=== PATIENT | female | born 1935 | race Caucasian/White ===

== ENCOUNTER 2017-05-17 21:21 | Inpatient (IN) | payer MEDICARE, BC ==
[2017-05-17 22:40] LABS: Hematocrit 39 % (35-47); Hemoglobin 12.8 g/dl (12.0-16.0); Mean Corpuscular HGB Conc 33 g/dl (31-36); Mean Corpuscular Hemoglobin 30 pg (27-31); Mean Corpuscular Volume 90 fL (80-97); Mean Platelet Volume 8 um3 (7.4-10.4); Red Cell Distribution Width 13 % (10.5-15); White Blood Count 13.8 10^3/ul (3.5-10.8)
[2017-05-17 22:55] LABS: Albumin 4.2 g/dL (3.2-5.2); BUN/Creatinine Ratio 27.9 (8-20); Calcium 10.7 mg/dL (8.6-10.3); EGFR African American 106.5 (>60); EGFR Non-African American 82.8 (>60); Globulin 3.4 g/dL (2-4); Potassium 3.9 mmol/L (3.5-5.0); Total Bilirubin 0.6 mg/dL (0.2-1.0); Total Protein 7.6 g/dL (6.4-8.9)
[2017-05-17 22:57] LABS: Troponin I 0.02 ng/mL (<0.04)
[2017-05-17 23:58] LABS: Urine Bacteria Absent (Absent); Urine Bilirubin Negative (Negative); Urine Glucose Negative (Negative); Urine Nitrite Negative (Negative)
--- NOTE | 2017-05-18 00:33 | ED ---
Lower Extremity - HPI Summary HPI Summary: 82F w/ no PMH presents with right hip pain today. Her leg got caught on the rug and she fell onto her right hip. She was not able to get up. Her son found her 5 hours later. She states only has pain when tries to move hip. no previous injury to the area. no numbness or tingling. the fall was a mechanical fall. She is not on blood thinners. last meal was at 12pm. She has minimal pain until tries to move. She states she was treating pain just by positioning. - History of Current Complaint Chief Complaint: EDExtremityLower Stated Complaint: FALL/RT HIP INJURY Time Seen by Provider: 05/17/17 22:05 Pain Intensity: 2 - Allergies/Home Medications Allergies/Adverse Reactions: Allergies Allergy/AdvReac Type Severity Reaction Status Date / Time Lisinopril Allergy Coughing Verified 05/30/12 09:16 PMH/Surg Hx/FS Hx/Imm Hx Endocrine/Hematology History: Denies: Hx Anticoagulant Therapy, Hx Diabetes Cardiovascular History: Denies: Hx Hypertension Sensory History: Reports: Hx Cataracts, Hx Contacts or Glasses - GLASSES Denies: Hx Hearing Aid Opthamlomology History: Reports: Hx Cataracts, Hx Contacts or Glasses - GLASSES - Cancer History Hx Chemotherapy: Yes - Surgical History Surgery Procedure, Year, and Place: RIGHT MASTECTOMY. APPENDECTOMY- A TEEN Hx Anesthesia Reactions: No Infectious Disease History: No Infectious Disease History: Denies: Traveled Outside the [place] in Last 30 Days - Family History Known Family History: Positive: Hypertension - Social History Alcohol Use: None Substance Use Type: Reports: None Smoking Status (MU): Former Smoker Review of Systems Negative: Fever Negative: Chest Pain Negative: Shortness Of Breath Positive: Myalgia - right hip pain All Other Systems Reviewed And Are Negative: Yes Physical Exam Triage Information Reviewed: Yes Vital Signs On Initial Exam: Initial Vitals BP 149/122 05/17/17 21:29 Vital Signs Reviewed: Yes Appearance: Positive: Well-Appearing Skin: Positive: Warm, Dry Head/Face: Positive: Normal Head/Face Inspection Eyes: Positive: Normal, EOMI, JOSE C, Conjunctiva Clear ENT: Positive: Normal ENT inspection, Pharynx normal, TMs normal Respiratory/Lung Sounds: Positive: Clear to Auscultation, Breath Sounds Present Cardiovascular: Positive: Normal, RRR Abdomen Description: Positive: Nontender, Soft Bowel Sounds: Positive: Present Musculoskeletal: Positive: Strength/ROM Intact - toes and ankle, Limited @ - right hip, Other - nontender hip, unable to move right hip without pain, good pulses, capillary refill<2 secs - Stacey Coma Scale Coma Scale Total: 15 Diagnostics - Vital Signs Vital Signs Temp Pulse Resp BP Pulse Ox 05/17/17 23:30 105 162/95 94 05/17/17 23:17 95 16 151/81 83 05/17/17 23:16 96 85 05/17/17 22:00 158/88 05/17/17 21:37 101 83 05/17/17 21:32 103 160/78 84 05/17/17 21:31 100 81 05/17/17 21:30 97.2 F 101 16 160/78 94 05/17/17 21:29 149/122 - Laboratory Lab Results: Lab Results 05/17/17 05/17/17 05/17/17 Range/Units 22:30 22:30 22:30 WBC 13.8 H (3.5-10.8) 10^3/ul RBC 4.30 (4.0-5.4) 10^6/ul Hgb 12.8 (12.0-16.0) g/dl Hct 39 (35-47) % MCV 90 (80-97) fL MCH 30 (27-31) pg MCHC 33 (31-36) g/dl RDW 13 (10.5-15) % Plt Count 261 (150-450) 10^3/ul MPV 8 (7.4-10.4) um3 Neut % (Auto) 90.0 H (38-83) % Lymph % (Auto) 3.7 L (25-47) % Prairie % (Auto) 6.1 (1-9) % Eos % (Auto) 0 (0-6) % Baso % (Auto) 0.2 (0-2) % Absolute Neuts (auto) 12.4 H (1.5-7.7) 10^3/ul Absolute Lymphs (auto) 0.5 L (1.0-4.8) 10^3/ul Absolute Monos (auto) 0.8 (0-0.8) 10^3/ul Absolute Eos (auto) 0 (0-0.6) 10^3/ul Absolute Basos (auto) 0 (0-0.2) 10^3/ul Absolute Nucleated RBC 0 10^3/ul Nucleated RBC % 0 INR (Anticoag Therapy) 0.98 (0.89-1.11) APTT 25.8 L (26.0-36.3) seconds Sodium 136 (133-145) mmol/L Potassium 3.9 (3.5-5.0) mmol/L Chloride 103 (101-111) mmol/L Carbon Dioxide 25 (22-32) mmol/L Anion Gap 8 (2-11) mmol/L BUN 19 (6-24) mg/dL Creatinine 0.68 (0.51-0.95) mg/dL Est GFR ( Amer) 106.5 (>60) Est GFR (Non-Af Amer) 82.8 (>60) BUN/Creatinine Ratio 27.9 H (8-20) Glucose 137 H (70-100) mg/dL Lactic Acid (0.5-2.0) mmol/L Calcium 10.7 H (8.6-10.3) mg/dL Total Bilirubin 0.60 (0.2-1.0) mg/dL AST 21 (13-39) U/L ALT 13 (7-52) U/L Alkaline Phosphatase 98 (34-104) U/L Total Creatine Kinase 58 (10-223) U/L Troponin I 0.02 (<0.04) ng/mL Total Protein 7.6 (6.4-8.9) g/dL Albumin 4.2 (3.2-5.2) g/dL Globulin 3.4 (2-4) g/dL Albumin/Globulin Ratio 1.2 (1-3) Urine Color Urine Appearance Urine pH (5-9) Ur Specific Plains (1.010-1.030) Urine Protein (Negative) Urine Ketones (Negative) Urine Blood (Negative) Urine Nitrate (Negative) Urine Bilirubin (Negative) Urine Urobilinogen (Negative) Ur Leukocyte Esterase (Negative) Urine WBC (Auto) (Absent) Urine RBC (Auto) (Absent) Ur Squamous Epith Cells (Absent) Urine Bacteria (Absent) Hyaline Casts (Absent) Urine Glucose (Negative) Blood Type Antibody Screen 05/17/17 05/17/17 05/17/17 Range/Units 22:30 22:30 23:35 WBC (3.5-10.8) 10^3/ul RBC (4.0-5.4) 10^6/ul Hgb (12.0-16.0) g/dl Hct (35-47) % MCV (80-97) fL MCH (27-31) pg MCHC (31-36) g/dl RDW (10.5-15) % Plt Count (150-450) 10^3/ul MPV (7.4-10.4) um3 Neut % (Auto) (38-83) % Lymph % (Auto) (25-47) % Prairie % (Auto) (1-9) % Eos % (Auto) (0-6) % Baso % (Auto) (0-2) % Absolute Neuts (auto) (1.5-7.7) 10^3/ul Absolute Lymphs (auto) (1.0-4.8) 10^3/ul Absolute Monos (auto) (0-0.8) 10^3/ul Absolute Eos (auto) (0-0.6) 10^3/ul Absolute Basos (auto) (0-0.2) 10^3/ul Absolute Nucleated RBC 10^3/ul Nucleated RBC % INR (Anticoag Therapy) (0.89-1.11) APTT (26.0-36.3) seconds Sodium (133-145) mmol/L Potassium (3.5-5.0) mmol/L Chloride (101-111) mmol/L Carbon Dioxide (22-32) mmol/L Anion Gap (2-11) mmol/L BUN (6-24) mg/dL Creatinine (0.51-0.95) mg/dL Est GFR ( Amer) (>60) Est GFR (Non-Af Amer) (>60) BUN/Creatinine Ratio (8-20) Glucose (70-100) mg/dL Lactic Acid 1.3 (0.5-2.0) mmol/L Calcium (8.6-10.3) mg/dL Total Bilirubin (0.2-1.0) mg/dL AST (13-39) U/L ALT (7-52) U/L Alkaline Phosphatase (34-104) U/L Total Creatine Kinase (10-223) U/L Troponin I (<0.04) ng/mL Total Protein (6.4-8.9) g/dL Albumin (3.2-5.2) g/dL Globulin (2-4) g/dL Albumin/Globulin Ratio (1-3) Urine Color Yellow Urine Appearance Cloudy Urine pH 7.0 (5-9) Ur Specific Plains 1.013 (1.010-1.030) Urine Protein Negative (Negative) Urine Ketones Trace H (Negative) Urine Blood 1+ H (Negative) Urine Nitrate Negative (Negative) Urine Bilirubin Negative (Negative) Urine Urobilinogen Negative (Negative) Ur Leukocyte Esterase Negative (Negative) Urine WBC (Auto) Trace(0-5/hpf) (Absent) Urine RBC (Auto) Absent (Absent) Ur Squamous Epith Cells Present H (Absent) Urine Bacteria Absent (Absent) Hyaline Casts Present H (Absent) Urine Glucose Negative (Negative) Blood Type A Positive Antibody Screen Negative Result Diagrams: 05/17/17 22:30 05/17/17 22:30 Lab Statement: Any lab studies that have been ordered have been reviewed, and results considered in the medical decision making process. - CT pelvis CT Interpretation: Positive (See Comments) - acute mid right femoral neck fracture CT Interpretation Completed By: Radiologist - EKG No standard instances Cardiac Rate: NL EKG Rhythm: Sinus Rhythm ST Segment: Normal EKG Interpretation: normal sinus rhythm Lower Extremity Course/Dx - Course Course Of Treatment: 82F w/ no PMH presents with right hip pain today. Her leg got caught on the rug and she fell onto her right hip. She was not able to get up. Her son found her 5 hours later. She states only has pain when tries to move hip. no previous injury to the area. no numbness or tingling. the fall was a mechanical fall. She is not on blood thinners. last meal was at 12pm. She has minimal pain until tries to move. She states she was treating pain just by positioning. on exam has limited ROM of right hip, neurovascular intact. CT pelvis shows right femoral neck fracture. labs wbc elevated which likely do to pain. ekg normal. creatine kinase normal. spoke with dr moe who will admit. - Diagnoses Differential Diagnosis/HQI/PQRI: Positive: Fracture (Closed), Sprain, Strain Provider Diagnoses: Fracture of femoral neck, right - Physician Notifications Discussed Care Of Patient With: dr moe Time Discussed With Above Provider: 01:00 - elana admit Discharge - Discharge Plan Condition: Stable Disposition: ADMITTED TO [facility]
[2017-05-18] MEDS ORDERED: Acetaminophen TAB* 325 MG PO PRN (00:42)
[2017-05-18] MEDS ORDERED: Ondansetron INJ* 2 MG/ML VIAL IV PRN (00:43)
[2017-05-18] MEDS: NS 0.9% 1000 ML* 1,000 ML IV SCH ×3 (01:28→12:37)
[2017-05-18] MEDS: Morphine INJ* 4 MG/ML 1 ML CARPUJECT IV PRN ×2 (03:59→12:33)
--- NOTE | 2017-05-18 07:54 | RAD ---
CLINICAL HISTORY: Right hip pain after a fall. Relevant surgical history includes an appendectomy. COMPARISON: None TECHNIQUE: Axial CT images of the pelvis were obtained without intravenous contrast. Reformats in the sagittal and coronal planes were created and reviewed. FINDINGS: The visualized segments of small and large bowel are not distended. Rectosigmoid diverticula are seen but none exhibit focal inflammatory change. There is no gross retroperitoneal or mesenteric lymphadenopathy in the visualized portions of the lower abdomen and pelvis. The moderately calcified lower abdominal aorta and common iliac arteries exhibit ectatic curvature without pathologic aneurysmal dilatation. Degenerative changes of the lower lumbar spine includes loss of intervertebral disc height. There is an impacted fracture with a small degree of varus deformity at the right femoral neck. Remaining visualized bones are intact and appropriately aligned. IMPRESSION: Right femoral neck fracture.
--- NOTE | 2017-05-18 09:04 | RAD ---
HISTORY: Right femoral neck fracture COMPARISONS: July 12, 2004 VIEWS: 1: frontal portable view of the chest at 8:45 AM FINDINGS: LINES AND TUBES: None. CARDIOMEDIASTINAL SILHOUETTE: The cardiomediastinal silhouette is normal for portable technique. PLEURA: The costophrenic angles are sharp. No pleural abnormalities are noted. LUNG PARENCHYMA: The lungs are clear. ABDOMEN: The upper abdomen is clear. There is no subphrenic gas. BONES AND SOFT TISSUES: There is a scoliotic curvature of the spine IMPRESSION: NO ACTIVE CARDIOPULMONARY DISEASE.
--- NOTE | 2017-05-18 10:23 | ECHO ---
Patient: ANNA MEDINA [facility] Rec#: [id number] : 1935 Date: 05/18/2017 Age: 82y Height: 172.72 cm / 68.0 in Weight: 63.5 kg / 140.0 lbs Sex: F BSA: 1.76 Room#: 339 Admit Date#: 05/18/2017 Type: Inpatient Referring: Yuko Roberto MD Reading: Yaron Hansen DO Trolley Wire Installer[facility] Tran[facility]ch[facility] Indication: Murmur, pre-op BP: 142/80 HR: 81 Rhythm: NSR with PACs Findings History: Fall [employer], former smoker. Technical Comments: The study quality is fair. The study was technically limited due to the patient's inability to lay in the left lateral decubitus position. Completed at 0950. Left Ventricle: The left ventricular chamber size is normal. Mild concentric left ventricular hypertrophy is observed. Left ventricular systolic function is at the lower limits of normal. The estimated ejection fraction is 50-55%. The basal anterolateral, basal inferolateral, basal inferior, mid anterolateral, mid inferolateral, and apical lateral wall segments are hypokinetic (score 2). Overall wallmotion score index is 1.38 Left Atrium: The left atrial chamber size is normal. Right Ventricle: The right ventricular chamber size and systolic function are within normal limits. Right Atrium: The right atrium is mildly dilated. Aortic Valve: The aortic valve is trileaflet. Mild aortic leaflet calcification is visualized. Systolic excursion of the aortic valve cusps is reduced. There is a trace of aortic regurgitation. There is moderate aortic stenosis.peak velocity 3.15 m/s. Unable to calculate LIVIER due to inadequate LVOT PW doppler The mean gradient of the aortic valve is 22.71 mmHg. Mitral Valve: The mitral valve leaflets are mildly thickened. There is a trace of mitral regurgitation. There is no evidence of mitral stenosis. Tricuspid Valve: The tricuspid valve leaflets are mildly thickened. There is mild to moderate tricuspid regurgitation. There is evidence of mild to moderate pulmonary hypertension. There is no tricuspid stenosis. Pulmonic Valve: The pulmonic valve appears normal. There is a trace pulmonic regurgitation. There is no pulmonic stenosis. Pericardium: There is no significant pericardial effusion. Aorta: There is mild dilatation of the ascending aorta. There is no dilatation of the aortic arch. The aortic root is normal in size. Pulmonary Artery: The main pulmonary artery is not well visualized. Venous: The inferior vena cava appears normal in size. There is a greater than 50% respiratory change in the inferior vena cava dimension. Conclusions The left ventricular chamber size is normal. Mild concentric left ventricular hypertrophy is observed. Left ventricular systolic function is at the lower limits of normal. The estimated ejection fraction is 50-55%. The basal anterolateral, basal inferolateral, basal inferior, mid anterolateral, mid inferolateral, and apical lateral wall segments are hypokinetic The left atrial chamber size is normal. There is mild to moderate tricuspid regurgitation. There is evidence of mild to moderate pulmonary hypertension. There is mild dilatation of the ascending aorta. Moderate aortic stenosis No prior studies available for comparison at time of interpretation Measurements Name Value Normal Range RVIDd (AP) 2D 3.4 cm (0.9 - 2.6) RVDdMajor (2D) 4.4 cm (2.2 - 4.4) RAd ISD 4CH 5.5 cm (3.4 - 4.9) RA (A4C)W 3.7 cm (2.9 - 4.6) IVSd (2D) 1.1 cm (0.6 - 1) LVPWd (2D) 1.1 cm (0.6 - 1) LVIDd (2D) 4.5 cm (3.6 - 5.4) LVIDs (2D) 3 cm - LV FS (2D) 33 % (25 - 45) Aortic Annulus 2.6 cm (1.4 - 2.6) Ao root diameter (2D) 3.1 cm (2.1 - 3.5) Ascending Ao 3.8 cm (2.1 - 3.4) Aortic arch 2.9 cm (1.8 - 3.4) LA dimension (AP) 2D 2.6 cm (2.3 - 3.8) LAd ISD 4CH 4.2 cm (2.9 - 5.3) LA ISD 4CH W 3.1 cm (2.5 - 4.5) Name Value Normal Range LA ESV SP 4CH (A/L) 24 ml - LA ESV SP 2CH (A/L) 70 ml - LA ESV BP (A/L) 46 ml - LA ESV BP (A/L) index 26 ml/m2 - LA ESV SP 4CH (MOD) 20 ml - LA ESV SP 2CH (MOD) 67 ml - Name Value Normal Range MV E-wave Vmax 0.42 m/sec - MV deceleration time 97.29 msec - MV A-wave Vmax 0.98 m/sec - MV E:A ratio 0.42 ratio - LV septal e' Vmax 0.04 m/sec - LV lateral e' Vmax 0.04 m/sec - LV E:e' septal ratio 10.5 ratio - LV E:e' lateral ratio 10.5 ratio - Name Value Normal Range AV Vmax 3.15 m/sec - AV VTI 108.94 cm - AV peak gradient 39.7 mmHg - AV mean gradient 22.71 mmHg - LVOT diameter 2.3 cm - Name Value Normal Range TR Vmax 3.3 m/sec - TR peak gradient 44 mmHg - RAP 3 mmHg - RVSP 47 mmHg - IVC diameter 1.6 cm - Name Value Normal Range PV Vmax 0.8 m/sec - PV peak gradient 2.56 mmHg - Wallmotion BAS Normal BA Normal BAL Hypokinetic PAMELA Hypokinetic BI Hypokinetic BIS Normal MAS Normal MA Normal MAL Hypokinetic MIL Hypokinetic UT Normal MIS Normal Normal AA Normal AL Hypokinetic AI Normal APEX Normal
[2017-05-18] MEDS ORDERED: Magnesium Sulfate 1 GM IV* 1 GM/100 ML BAG IV ONE (12:27)
[2017-05-18] MEDS ORDERED: Metoprolol Tartrate IV* 1 MG/ML 5 ML VIAL ONE ×2 (12:33→23:41)
[2017-05-18] MEDS: Metoprolol Tartrate IV* 1 MG/ML 5 ML VIAL IV SCH ×2 (12:34→12:38)
[2017-05-18 12:51] LABS: Magnesium 1.7 mg/dL (1.9-2.7)
[2017-05-18] MEDS: Pantoprazole IV* 40 MG IV SCH (13:05)
--- NOTE | 2017-05-18 15:38 | CONS ---
ORTHOPEDIC CONSULTATION/HISTORY AND PHYSICAL DATE OF ADMISSION: 05/18/2017. PROVIDER: Dr. Kirby Oliver (dictated by RYAN Chauhan). CHIEF COMPLAINT: Right hip pain, subsequently identified as a right femoral neck fracture. HISTORY OF PRESENT ILLNESS: This is an 82-year-old female presents with right hip pain on 05/18/2017. She states that her leg was caught on the rug and she fell onto her back and right hip. She was unable to get up. She had no other injuries at this time. A friend of the family found her five hours later and brought her to the emergency room. At the time, she reported that she had pain only when trying to move the hip. She had no previous injury to the area, no numbness or tingling and no radiation of pain. Preceding the fall she had no chest pain, shortness of breath, dizziness, or medication changes. She does not take blood thinners. During her hospital stay, x-ray has demonstrated that there is an impacted fracture with a small degree of varus deformity in the right femoral neck. The remaining visualized bones are intact and appropriately aligned. Currently her pain is well-controlled with use of Morphine IV. She finds herself most comfortable when her right hip and knee are braced up on a pillow. She has a lot of pain when she is taken out of this position. She confirms that she has full sensation into her right lower limb. Prior to this fall, she was very mobile. She lives alone and is her own caregiver. She does have five children, but they do not live within this state. She has had anesthesia in the past and tolerated it well. She has no issues with easy bleeding or bruising. She has not had any blood clots, including DVT or PE in the past. She has no known cardiac history and does not see a yarn finisher. She has no known pulmonary history and does not see a pack changer. Has not had a heart attack or a stroke. During her time at this hospital, she did have a five beat run of V-tach preceded by bigeminy. During this time she was entirely asymptomatic. Dr. Roberto is managing her with the addition of magnesium and metoprolol. PAST MEDICAL HISTORY: Breast cancer and cataracts. MEDICATIONS: None at home. During her hospital stay, she is currently takin. Acetaminophen 650 mg p.o. q.6 hours prn pain. 2. Metoprolol 5 mg IV q.6 hours. 3. Morphine Sulfate 4 mg IV q.4 hours prn pain. 4. Zofran 4 mg IV q.6 hours prn nausea. 5. Protonix 40 mg IV daily. ALLERGIES: No reported drug allergies. Chart does indicate COUGHING WITH LISINOPRIL in the past which the patient does not recall. FAMILY HISTORY: No pertinent family history. No family history of reactions to anesthesia. SOCIAL HISTORY: The patient does not use alcohol. She does not use drugs. She does not currently smoke cigarettes, but did smoke cigarettes up until 15 years ago. REVIEW OF SYSTEMS: General: Denies fevers or chills. Dense any known anesthesia problems. HEENT: Denies headache, lightheadedness, or syncopal episodes. Cardiothoracic: Negative for chest pain, heart palpitations, irregular heartbeats, or pedal edema. Pulmonary: Negative for shortness of breath, chronic cough, COPD or asthma. GI: Denies nausea, vomiting, diarrhea, or constipation. : Denies any dysuria. Does have a Calles catheter in place at this time. Musculoskeletal: No frequent fractures or falls. Neuro: No paresthesia, numbness, seizures, or strokes. Integumentary: No abrasions, lesions, rashes, lumps or open sores. Endocrine: No diabetes or thyroid issues. Hematology: No easy bruising, bleeding, anemia, DVT or PE. PHYSICAL EXAMINATION: GENERAL: The patient is alert and oriented, 82-years- old. She is in no acute distress. Mood and affect are appropriate. VITAL SIGNS: Temperature 99.2, pulse 91, respiratory rate 16, oxygen saturation 93, blood pressure 141/78. HEENT: Normocephalic, atraumatic. Hearing and vision are grossly intact. The patient has no bridges or dentures. CARDIO: Regular rate and rhythm, S1, S2. +2/6 murmur. No pedal edema. PULMONARY: Lungs are clear to auscultation bilaterally without wheezes, rales or rhonchi. ABDOMEN: Bowel sounds normoactive. Nontender to palpation. No palpable masses. : No suprapubic tenderness. MUSCULOSKELETAL: She is lying on her back with her right buttock and lower propped up onto a pillow for comfort. Her right leg is shortened and is propped making rotation difficult to assess. The patient is unwilling to engage in range of motion at the right hip joint due to pain. She is nontender to palpation throughout the right lower extremity. She is nontender over the right hip, right low back. NEUROLOGIC: Sensation is intact throughout the entirety of the right lower extremity, including web space between the first and second digits, dorsum, plantar surface, medial and lateral foot. Dorsiflexion and plantarflexion are intact bilaterally. VASCULAR: No palpable cords. Dorsalis pedis, posterior tibialis, and radial pulses are 2+ bilaterally. Capillary refill in the distal lower extremities is brisk. SKIN: No lesions or rashes. Bilateral great toenails are yellowed and thickened. DIAGNOSTIC STUDIES: 1. Pelvis CT shows that there is a impacted fracture with a small degree of varus deformity at the right femoral neck. Remaining visualized bones are intact and appropriately aligned. The impression is a right femoral neck fracture. 2. Transthoracic echocardiogram was done this morning, 05/18/2017. Results are as follows: The left ventricular chamber size is normal. Mild concentric LVH is observed. Left ventricular systolic function is at the lower limits of normal. The estimated ejection fraction is 50 to 55 percent. 3. Chest x-ray done 05/18/2017: No active cardiopulmonary disease. LABORATORY DATA: From 05/17/2017: H and H of 11.8 and 39; INR 0.98, PTT 25.8 IMPRESSION: Right femoral neck fracture. PLAN: Dr. Oliver will bring the patient to the OR for a right bipolar hemiarthroplasty on 05/18/2017. RYAN NESBITT [id number]/[facility] #: [id number] F [facility]ON HOSPITALAdama
[2017-05-18] MEDS ORDERED: Lidocaine 2% PF * 5 ML VIAL ONE (17:37)
[2017-05-18] MEDS ORDERED: Etomidate* 2 MG/ML 10 ML VIAL ONE (17:37)
[2017-05-18] MEDS ORDERED: Rocuronium* 10 MG/ML VIAL ONE (17:37)
[2017-05-18] MEDS ORDERED: fentaNYL* 50 MCG/ML 5 ML VIAL (250 MCG VIAL) ONE (17:37)
--- NOTE | 2017-05-18 17:42 | PN ---
Progress Note - Progress Note Date of Service: 05/18/17 Note: pt was seen in hospitalist consult requested by Dr. Skelton see the dictation for details. Pt has excellent exercise tolerance and no significant past medical ,hx part for mastectomy on R. Echo was obtained due to abnormal EKG and shows good EF at 55% with inferior wall motion abnormalities and moderate . Pt was noted to have PVC's and one episode of 5 beats of V. Tach. Her Mg was noted to be 1.7 and replaced IV. She was placed on lopressor IV 5 mg Q6H preop. At his point is medically optimized and an acceptable candidate for her hip surgery.
[2017-05-18] MEDS ORDERED: Midazolam* 1 MG/ML 2 ML VIAL (2 MG) ONE ×2 (17:47→21:44)
[2017-05-18 18:45] LABS: Troponin I 0.06 ng/mL (<0.04)
--- NOTE | 2017-05-18 19:05 | CONS ---
CC: RYAN Mercedes * CONSULTATION REPORT: DATE OF CONSULT: 05/18/17 PRIMARY CARE PROVIDER: RYAN Mercedes PHYSICIAN REQUESTING CONSULT: Dr. Rene. CHIEF COMPLAINT: Status post fall and right hip pain. HISTORY OF PRESENT ILLNESS: Jeanine Fox is an 82-year-old female with history of remote mastectomy for breast cancer, presents after a mechanical fall with impacted fracture of the right femoral neck. Dr. Rene asked Medicine to consult in regards to preop evaluation. The patient stated that she was walking towards her window, tripped over the couch that was by the window and fell. She denies losing consciousness and the fall appears to be purely mechanical. Currently, she is comfortable on bedrest in our surgical unit. She had been in her usual state of health and did not have any recent illnesses. PAST MEDICAL HISTORY: The patient has a history of status post right-sided mastectomy for breast cancer in 2012 followed by chemotherapy. CURRENT MEDICATIONS: None. ALLERGIES: LISINOPRIL causes coughing. FAMILY HISTORY: The patient's father was healthy all his life and suddenly at the age of 85. Mother of catastrophic CVA at the age of 87. SOCIAL HISTORY: The patient denies any tobacco, alcohol, or drug use. She is a retired teacher. She lives by herself and owns her own house, which she takes care of. She has overall 5 children. All of them do not live locally. Her daughter, Nuria Soriano, from [place] would be her surrogate. REVIEW OF SYSTEMS: Please see history of present illness. The patient stated that she never had any problems with her surgery in 2002 when she had mastectomy. She denies any history of heart issues. She denies any chest pain or shortness of breath. Her exercise tolerance is excellent. She can walk up a flight of stairs without any problems. She denies any recent illnesses. Specifically, she denies abdominal pain, dysuria, cough, shortness of breath, unsteady gait. The remaining 12 systems were reviewed with the patient and were otherwise negative. PHYSICAL EXAM: Blood pressure of 142/80, heart rate of 94 and regular, respiratory rate 16, oxygen saturation 93% on room air, temperature of 100.2. General: The patient is a very pleasant 82-year-old female who is in no acute distress. Alert, awake, and oriented x3. HEENT: Head: Atraumatic, normocephalic. Eyes: Pupils are equal and reactive to light and accommodation. Oropharynx clear. Mucosa moist. Neck: Supple. No JVD, no bruits bilaterally. Cardiovascular: Regular rate and rhythm. Tachycardia with 2/6 diastolic murmur on auscultation of the apex. Abdomen: Soft, nontender. Bowel sounds are present in all 4 quadrants. Extremities: There is no edema. +2 pulses bilaterally. There is no clubbing or cyanosis. Neuro Evaluation: Cranial nerves II through XII grossly intact. Motor strength is 5/ 5 bilaterally in all of the extremities apart from the right hip, which was not evaluated due to known fracture. On evaluation of the skin, no ecchymotic areas or rashes noted. Psychiatric evaluation: Oriented x3 with no evidence of anxiety or depression. DIAGNOSTIC STUDIES/LAB DATA: Showed white blood cell count of 13.8, hemoglobin of 12.8, hematocrit of 39, and platelets of 261. INR of 0.98, PTT of 25.8. Sodium was 136, potassium 3.9, chloride 103, carbon dioxide 25, BUN 19, creatinine 0.68. Liver function tests were unremarkable apart from slight elevation of calcium at 10.7. Urinalysis showed trace blood, trace ketones, absent bacteria. CT of the pelvis, impression: "Right femoral neck fracture." The patient's echocardiogram showed right bundle branch block and sinus tachycardia with heart rate of 97 beats per minute, voltage criteria for LVH. Comparing with an EKG from 2011, the right bundle branch block is new. IMPRESSION AND PLAN: 1. In regards to the patient's right femoral neck fracture, the patient is planned to the OR in the near future. She has an excellent exercise tolerance and no marked medical history. She has no history of heart disease, kidney disease, or lung problems. She does have right bundle branch block in her EKG that is new comparing from 2011. She also has a mild heart murmur. At this point, due to the abnormal EKG and heart murmur, I would like to evaluate her with transthoracic echocardiogram prior to her procedure. At this point, I do not see any modifiable factors for the patient to undergo a separate surgery and she appears to be a good candidate for the procedure. I would like to follow up with her echocardiogram if there may be other need for optimization of the patient prior to the procedure. 2. In regards to her mild hypercalcemia, most likely due to mild dehydration. The patient also has trace ketones in her urine. I agree with intravenous hydration. 3. I will place a Calles catheter in this patient prior to the planned surgery. 4. For DVT prophylaxis, I will start sequential compression devices and will not institute anticoagulation due to the patient being planned for surgery likely today. 5. The patient's code status is full. 6. The patient's temperature of 100.2 and tachycardia is most likely related to pain and stress after the fracture. There is no evidence of infection. Nevertheless, I will check a portable chest x-ray for completeness. Thank you very much for allowing me to see your patient in consultation. We will follow with the patient later. TIME SPENT: Approximately 65 minutes was spent on consultation of this patient. [id number]/CPS #: [id number] KATIE
[2017-05-18] MEDS ORDERED: ceFAZolin 2 GM PREMIX (*) 2 GM/50 ML BAG IVPB ONE (20:29)
[2017-05-18] MEDS ORDERED: fentaNYL* 50 MCG/ML 2 ML VIAL (100 MCG VIAL) ONE ×2 (21:38→22:40)
[2017-05-18] MEDS ORDERED: KETAMINE HCL* 50 MG/ML 10 ML VIAL ONE (21:38)
[2017-05-18] MEDS ORDERED: Propofol* 10 MG/ML 20 ML BTL IV PUSH ONE (22:35)
[2017-05-18] MEDS ORDERED: Dexamethasone IV* 4 MG/ML 1 ML (4 MG) ONE (22:35)
[2017-05-18] MEDS ORDERED: Ondansetron INJ* 2 MG/ML VIAL ONE (22:35)
[2017-05-18] MEDS ORDERED: Ketorolac INJ* 30 MG/ML 1 ML VIAL ONE (22:35)
[2017-05-18] MEDS ORDERED: Phenylephrine INJ* 10 MG/ML 1 ML VIAL (10 MG) ONE (22:36)
[2017-05-18] MEDS ORDERED: Phenylephrine IV* 40 MCG/ML 10 ML SYRINGE ONE (22:36)
[2017-05-18] MEDS ORDERED: HYDROmorphone INJ* 1 MG/ML CARPUJECT SYRINGE ONE (23:43)
[2017-05-19] MEDS ORDERED: DiMENhydriNATE IV* 50 MG/ML VIAL IV PUSH PRN (00:54)
[2017-05-19] MEDS ORDERED: HYDROmorphone INJ* 1 MG/ML CARPUJECT SYRINGE IV PRN (00:54)
[2017-05-19] MEDS ORDERED: Acetaminophen TAB* 325 MG PO PRN (00:54)
[2017-05-19] MEDS ORDERED: oxyCODONE TAB* 5 MG TAB PO PRN (00:54)
[2017-05-19 02:05] LABS: Hematocrit 37 % (35-47); Mean Corpuscular HGB Conc 33 g/dl (31-36); Mean Corpuscular Hemoglobin 29 pg (27-31); Mean Corpuscular Volume 91 fL (80-97); Mean Platelet Volume 8 um3 (7.4-10.4); Red Blood Count 4.07 10^6/ul (4.0-5.4); Red Cell Distribution Width 13 % (10.5-15); White Blood Count 15.6 10^3/ul (3.5-10.8)
[2017-05-19] MEDS: Metoprolol Tartrate IV* 1 MG/ML 5 ML VIAL IV SCH ×3 (02:50→06:02)
[2017-05-19] MEDS ORDERED: oxyCODONE/Acetamin 5/325 MG* TAB PO PRN (02:52)
[2017-05-19] MEDS ORDERED: Morphine INJ* 2 MG/ML 1 ML SYRINGE (TWO MG - NEW SYRINGE VERSION) IV PRN (02:53)
[2017-05-19] MEDS: NS 0.9% 1000 ML* 1,000 ML IV SCH (03:52)
[2017-05-19] MEDS: ceFAZolin 1 GM* X 3 DOSES POST-OP Q8H IVPB SCH ×6 (05:39→21:43)
[2017-05-19 06:15] LABS: BUN/Creatinine Ratio 30.3 (8-20); Calcium 9.8 mg/dL (8.6-10.3); EGFR African American 110.3 (>60); EGFR Non-African American 85.7 (>60); Magnesium 1.8 mg/dL (1.9-2.7); Potassium 4.3 mmol/L (3.5-5.0)
--- NOTE | 2017-05-19 07:28 | RAD ---
INDICATION: Right hip arthroplasty COMPARISON: CT of the pelvis May 17, 2017 TECHNIQUE: A single AP view of the postoperative hip was obtained. FINDINGS: There is a right hip prosthesis anatomically aligned in the AP projection. Postoperative changes include surgical skin yaquelin and subcutaneous gas. Remaining visualized bones are intact and properly aligned. IMPRESSION: AP anatomic alignment of the right hip prosthesis.
[2017-05-19] MEDS ORDERED: Magnesium Sulfate 2 GM IV* 2 GM/50 ML BAG IVPB ONE (08:21)
[2017-05-19] MEDS: Pantoprazole IV* 40 MG IV SCH (09:32)
--- NOTE | 2017-05-19 12:15 | PN ---
Progress Note - Progress Note Date of Service: 05/19/17 SOAP: Subjective: 82 y/o female s/p right bipolar reyna by Dr. Oliver. Patient reports feeling well, minimal pain, eager for ambulation. Objective: General- Well appearing, NAD AO, resting comfortably in bed MSK- Dressing intact, no drainage, no induration. + DF/PF b/l, PT 2+ b/l, neg homans. sensation to light touch intact. Vital Signs Temp 99 F 05/19/17 12:00 Pulse 97 05/19/17 11:30 Resp 20 05/19/17 11:59 BP 179/108 05/19/17 11:04 Pulse Ox 90 05/19/17 11:30 Intake & Output 05/18/17 05/19/17 05/19/17 18:59 06:59 18:59 Intake Total 1345 1505 1326 Output Total 100 625 Balance 6342 773 8097 Intake: IV Fluids 1345 1505 776 LR 1400 NS (0.9%) 726 NS 50ML, Cefazolin 2G 50 Oral 550 Output: Calles 425 Residual 100 16 Fr 100 Estimated Blood Loss 200 Assessment: Stable 82 y/o female s/p right bipolar reyna by Dr. Oliver. Plan: - DVT prophylaxis- Elliquis to begin tonight - Continue PT/ OT - Transfer to [facility] - Admitted under hospitalists - Troponin tending downwards - H&H stable continue to monitor trend Active Medications Generic Name Dose Route Start Last Admin Trade Name Freq PRN Reason Stop Dose Admin Acetaminophen 650 mg 05/18/17 00:42 05/18/17 01:28 Tylenol Tab* PO 650 mg Q6H PRN Administration PAIN Apixaban 2.5 mg 05/19/17 21:00 Eliquis PO BID WENDY Cefazolin Sodium 1 gm/ Sodium 50 mls @ 200 mls/hr 05/19/17 06:00 05/19/17 05: 39 Chloride IVPB 05/19/17 22:14 200 mls/hr Q8H WENDY Administration Morphine Sulfate 4 mg 05/18/17 00:42 05/18/17 12:33 Morphine Inj (Syringe)* IV 4 mg Q4H PRN Administration PAIN - MODERATE Morphine Sulfate 2 mg 05/19/17 02:53 Morphine Inj (Syringe)* IV Q2H PRN PAIN BREAKTHRU Ondansetron HCl 4 mg 05/18/17 00:43 Zofran Inj* IV Q6H PRN NAUSEA Oxycodone/Acetaminophen 1 tab 05/19/17 02:51 Percocet 5/325 Tab* PO Q4H PRN PAIN Oxycodone/Acetaminophen 2 tab 05/19/17 02:52 Percocet 5/325 Tab* PO Q4H PRN PAIN MODERATE Pantoprazole Sodium 40 mg 05/18/17 13:00 05/19/17 09:32 Protonix Iv* IV 40 mg DAILY WENDY Administration <Marina Michaud - Last Filed: 05/19/17 12:22> - Progress Note SOAP: Subjective: Patient appears comfortable in ICU bed. Wants to be transferred to a floor bed and to begin PT. Objective: RLE: - dressing c/d/i - NVID x-rays in PACU: hardware well-placed, no fracture Assessment: POD 1 R hip bipolar hemiarthroplasty Plan: - Transfer to floor - PT, WBAT - Eliquis starting tonight - Dispo planning - Ancef postop - Pain control <Kirby Oliver - Last Filed: 05/20/17 18:42>
--- NOTE | 2017-05-19 16:46 | PN ---
Subjective Date of Service: 05/19/17 Interval History: s/p right femoral neck fracture repair late last night. Pt doing well, feeling great and eager to move around. Afebrile, hemodynamically stable. Later transferred to floor. Objective Active Medications: Acetaminophen (Tylenol Tab*) 650 mg PO Q6H PRN PRN Reason: PAIN Last Admin: 05/18/17 01:28 Dose: 650 mg Apixaban (Eliquis) 2.5 mg PO BID [facility] Cefazolin Sodium 1 gm/ Sodium (Chloride) 50 mls @ 200 mls/hr IVPB Q8H [facility] Stop: 05/19/17 22:14 Last Admin: 05/19/17 15:18 Dose: 200 mls/hr Morphine Sulfate (Morphine Inj (Syringe)*) 4 mg IV Q4H PRN PRN Reason: PAIN - MODERATE Last Admin: 05/18/17 12:33 Dose: 4 mg Morphine Sulfate (Morphine Inj (Syringe)*) 2 mg IV Q2H PRN PRN Reason: PAIN BREAKTHRU Ondansetron HCl (Zofran Inj*) 4 mg IV Q6H PRN PRN Reason: NAUSEA Oxycodone/Acetaminophen (Percocet 5/325 Tab*) 1 tab PO Q4H PRN PRN Reason: PAIN Oxycodone/Acetaminophen (Percocet 5/325 Tab*) 2 tab PO Q4H PRN PRN Reason: PAIN MODERATE Pantoprazole Sodium (Protonix Iv*) 40 mg IV DAILY [facility] Last Admin: 05/19/17 09:32 Dose: 40 mg Vital Signs 05/18/17 05/18/17 05/18/17 17:00 18:00 19:00 Temperature 98.6 F Pulse Rate 101 101 100 Respiratory 21 20 20 Rate Blood Pressure 153/89 156/96 150/97 (mmHg) O2 Sat by Pulse 98 98 98 Oximetry 05/18/17 05/18/17 05/18/17 19:36 19:38 20:00 Temperature Pulse Rate 102 106 Respiratory 20 Rate Blood Pressure 110/75 99/57 (mmHg) O2 Sat by Pulse 98 98 Oximetry 05/18/17 05/18/17 05/18/17 20:30 20:45 21:00 Temperature Pulse Rate 107 109 103 Respiratory 22 22 Rate Blood Pressure 103/74 151/89 (mmHg) O2 Sat by Pulse 99 87 97 Oximetry 05/18/17 05/18/17 05/18/17 22:00 22:16 23:09 Temperature Pulse Rate 109 108 Respiratory Rate Blood Pressure 120/59 (mmHg) O2 Sat by Pulse 98 98 Oximetry 05/18/17 05/18/17 05/18/17 23:11 23:24 23:39 Temperature Pulse Rate 84 65 83 Respiratory Rate Blood Pressure 120/63 131/57 (mmHg) O2 Sat by Pulse 96 98 99 Oximetry 05/18/17 05/19/17 05/19/17 23:44 00:20 00:25 Temperature 97.7 F Pulse Rate 85 82 88 Respiratory 14 14 Rate Blood Pressure 154/89 147/88 (mmHg) O2 Sat by Pulse 98 100 100 Oximetry 05/19/17 05/19/17 05/19/17 00:30 00:45 01:01 Temperature 97.7 F Pulse Rate 83 80 89 Respiratory 12 10 14 Rate Blood Pressure 156/90 153/88 153/85 (mmHg) O2 Sat by Pulse 98 100 98 Oximetry 05/19/17 05/19/17 05/19/17 01:27 01:33 01:56 Temperature 97.4 F Pulse Rate 81 Respiratory 12 19 Rate Blood Pressure 149/90 (mmHg) O2 Sat by Pulse 95 Oximetry 05/19/17 05/19/17 05/19/17 02:00 02:15 02:23 Temperature 97.4 F Pulse Rate 82 83 82 Respiratory 17 13 18 Rate Blood Pressure 144/87 131/82 149/90 (mmHg) O2 Sat by Pulse 97 99 95 Oximetry 05/19/17 05/19/17 05/19/17 02:29 02:30 02:45 Temperature Pulse Rate 81 80 Respiratory 11 14 Rate Blood Pressure 157/92 135/82 143/78 (mmHg) O2 Sat by Pulse 99 99 Oximetry 05/19/17 05/19/17 05/19/17 03:00 03:15 03:30 Temperature Pulse Rate 82 81 84 Respiratory 12 17 14 Rate Blood Pressure 117/78 114/74 108/78 (mmHg) O2 Sat by Pulse 96 97 97 Oximetry 05/19/17 05/19/17 05/19/17 03:45 04:00 04:15 Temperature Pulse Rate 82 85 85 Respiratory 13 11 11 Rate Blood Pressure 102/76 134/76 111/73 (mmHg) O2 Sat by Pulse 96 93 93 Oximetry 05/19/17 05/19/17 05/19/17 04:18 04:30 05:00 Temperature 97.0 F Pulse Rate 85 84 Respiratory 11 14 Rate Blood Pressure 121/83 117/80 (mmHg) O2 Sat by Pulse 94 94 Oximetry 05/19/17 05/19/17 05/19/17 05:30 06:00 06:01 Temperature Pulse Rate 85 91 93 Respiratory 12 19 23 Rate Blood Pressure 122/81 123/80 (mmHg) O2 Sat by Pulse 95 94 95 Oximetry 05/19/17 05/19/17 05/19/17 06:30 07:00 07:40 Temperature 98.7 F Pulse Rate 81 83 Respiratory 31 15 Rate Blood Pressure 118/82 (mmHg) O2 Sat by Pulse 94 94 Oximetry 05/19/17 05/19/17 05/19/17 08:00 09:00 09:13 Temperature Pulse Rate 85 95 93 Respiratory 21 13 20 Rate Blood Pressure 100/67 (mmHg) O2 Sat by Pulse 97 89 80 Oximetry 05/19/17 05/19/17 05/19/17 09:30 10:00 10:31 Temperature Pulse Rate 96 97 99 Respiratory 20 24 21 Rate Blood Pressure 92/62 95/63 83/62 (mmHg) O2 Sat by Pulse 94 95 88 Oximetry 05/19/17 05/19/17 05/19/17 11:00 11:04 11:30 Temperature Pulse Rate 95 103 97 Respiratory 18 Rate Blood Pressure 95/59 179/108 (mmHg) O2 Sat by Pulse 92 91 90 Oximetry 05/19/17 05/19/17 11:59 12:00 Temperature 99 F Pulse Rate Respiratory 20 Rate Blood Pressure (mmHg) O2 Sat by Pulse Oximetry Oxygen Devices in Use Now: None Appearance: NAD, lying in bed. Eyes: No Scleral Icterus Ears/Nose/Mouth/Throat: NL Teeth, Lips, Gums, Mucous Membranes Moist Neck: NL Appearance and Movements; NL JVP, Trachea Midline Respiratory: Symmetrical Chest Expansion and Respiratory Effort, Clear to Auscultation Cardiovascular: NL Sounds; No Murmurs; No JVD, RRR Abdominal: NL Sounds; No Tenderness; No Distention, No Hepatosplenomegaly Extremities: No Edema, No Clubbing, Cyanosis, - - right hip with bandage, foam cushion between legs. Skin: No Rash or Ulcers Neurological: Alert and Oriented x 3, NL Muscle Strength and Tone Result Diagrams: 05/19/17 01:55 05/19/17 05:36 Additional Lab and Data: Laboratory Results - last 24 hr 05/18/17 05/19/17 05/19/17 18:15 01:55 01:55 WBC 15.6 H RBC 4.07 Hgb 12.0 Hct 37 MCV 91 MCH 29 MCHC 33 RDW 13 Plt Count 236 MPV 8 Sodium Potassium Chloride Carbon Dioxide Anion Gap BUN Creatinine Est GFR ( Amer) Est GFR (Non-Af Amer) BUN/Creatinine Ratio Glucose Calcium Magnesium CK-MB (CK-2) 2.1 Troponin I 0.06 H* 0.04 H* 05/19/17 05:36 WBC RBC Hgb Hct MCV MCH MCHC RDW Plt Count MPV Sodium 131 L Potassium 4.3 Chloride 103 Carbon Dioxide 21 L Anion Gap 7 BUN 20 Creatinine 0.66 Est GFR ( Amer) 110.3 Est GFR (Non-Af Amer) 85.7 BUN/Creatinine Ratio 30.3 H Glucose 127 H Calcium 9.8 Magnesium 1.8 L CK-MB (CK-2) Troponin I Assess/Plan/Problems-Billing Assessment: 82 yo female no PMH found to have moderate aortic stenosis and some regional wall motion abnormalities, p/w right femoral neck fracture s/p repair. - Patient Problems (1) Right femoral fracture Current Visit: Yes Status: Acute Code(s): S72.91XA - UNSP FRACTURE OF RIGHT FEMUR, INIT FOR CLOS FX SNOMED Code(s): 65574275 Comment: Appreciate ortho assistance continue PT foam cushion to prevent leg crossing at night apixaban 2.5mg BID for DVT ppx per ortho f/u PMRU referral remove tolliver (2) Moderate aortic stenosis Current Visit: Yes Status: Acute Code(s): I35.0 - NONRHEUMATIC AORTIC (VALVE ) STENOSIS SNOMED Code(s): 96731179 Comment: f/u as outpatient with ECHO (3) DVT prophylaxis Current Visit: Yes Status: Acute Code(s): GDA8485 - SNOMED Code(s): 554615514 Comment: apixaban (4) Regional wall motion abnormality of heart Current Visit: Yes Status: Acute Code(s): R93.1 - ABNORMAL FINDINGS ON DX IMAGING OF HEART AND COR CIRC SNOMED Code(s): 834251528 Comment: f/u with cardiology as outpatient. Status and Disposition: medicine(transferred from [facility] 05/19) inpatient, possible d/c 05/20 or 05/22 if needs FUNMI/SNF Attending: Dustin Higgins
[2017-05-19] MEDS: Apixaban* 2.5 MG TAB PO SCH (20:39)
[2017-05-20 05:32] LABS: Hematocrit 28 % (35-47); Hemoglobin 9.6 g/dl (12.0-16.0)
[2017-05-20] MEDS: oxyCODONE/Acetamin 5/325 MG* TAB PO PRN ×3 (07:41→22:26)
--- NOTE | 2017-05-20 07:57 | PN ---
Progress Note - Progress Note Date of Service: 05/20/17 SOAP: Subjective: - No complaints. Got out of bed without PT yesterday. Wants to go home when discharged. Objective: NAD. Appears comfortable. 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
[2017-05-20] MEDS: Pantoprazole IV* 40 MG IV SCH (08:42)
[2017-05-20] MEDS: Apixaban* 2.5 MG TAB PO SCH ×2 (08:42→22:26)
--- NOTE | 2017-05-20 10:12 | PN ---
Subjective Date of Service: 05/20/17 Interval History: No pain. Walking with walker. Eating well. Afebrile, hemodynamically stable. Objective Active Medications: Acetaminophen (Tylenol Tab*) 650 mg PO Q6H PRN PRN Reason: PAIN Last Admin: 05/18/17 01:28 Dose: 650 mg Apixaban (Eliquis) 2.5 mg PO BID [facility] Last Admin: 05/20/17 08:42 Dose: 2.5 mg Morphine Sulfate (Morphine Inj (Syringe)*) 4 mg IV Q4H PRN PRN Reason: PAIN - MODERATE Last Admin: 05/18/17 12:33 Dose: 4 mg Morphine Sulfate (Morphine Inj (Syringe)*) 2 mg IV Q2H PRN PRN Reason: PAIN BREAKTHRU Ondansetron HCl (Zofran Inj*) 4 mg IV Q6H PRN PRN Reason: NAUSEA Oxycodone/Acetaminophen (Percocet 5/325 Tab*) 1 tab PO Q4H PRN PRN Reason: PAIN Last Admin: 05/20/17 07:41 Dose: 1 tab Oxycodone/Acetaminophen (Percocet 5/325 Tab*) 2 tab PO Q4H PRN PRN Reason: PAIN MODERATE Pantoprazole Sodium (Protonix Iv*) 40 mg IV DAILY [facility] Last Admin: 05/20/17 08:42 Dose: 40 mg Vital Signs 05/19/17 05/19/17 05/19/17 10:31 11:00 11:04 Temperature Pulse Rate 99 95 103 Respiratory 21 18 Rate Blood Pressure 83/62 95/59 179/108 (mmHg) O2 Sat by Pulse 88 92 91 Oximetry 05/19/17 05/19/17 05/19/17 11:30 11:59 12:00 Temperature 99 F Pulse Rate 97 Respiratory 20 Rate Blood Pressure (mmHg) O2 Sat by Pulse 90 Oximetry 05/19/17 05/19/17 05/19/17 12:19 13:01 13:05 Temperature 98.0 F Pulse Rate 97 Respiratory 16 Rate Blood Pressure 104/48 (mmHg) O2 Sat by Pulse 73 93 Oximetry 05/19/17 05/19/17 05/19/17 15:30 19:46 20:00 Temperature 99.2 F 97.1 F Pulse Rate 97 98 Respiratory 20 16 18 Rate Blood Pressure 99/59 95/55 (mmHg) O2 Sat by Pulse 89 94 Oximetry 05/19/17 05/20/17 05/20/17 23:17 02:28 03:24 Temperature 98.5 F 98.6 F Pulse Rate 96 94 Respiratory 18 16 Rate Blood Pressure 108/61 110/64 (mmHg) O2 Sat by Pulse 93 96 97 Oximetry 05/20/17 05/20/17 05/20/17 07:32 07:41 08:00 Temperature 98.2 F Pulse Rate 93 Respiratory 16 18 18 Rate Blood Pressure 128/74 (mmHg) O2 Sat by Pulse 97 Oximetry Oxygen Devices in Use Now: Nasal Cannula Appearance: NAD Eyes: No Scleral Icterus, PERRLA Ears/Nose/Mouth/Throat: NL Teeth, Lips, Gums, Mucous Membranes Moist Neck: NL Appearance and Movements; NL JVP Respiratory: Symmetrical Chest Expansion and Respiratory Effort, Clear to Auscultation Cardiovascular: NL Sounds; No Murmurs; No JVD, RRR Abdominal: NL Sounds; No Tenderness; No Distention, No Hepatosplenomegaly Extremities: No Edema, - - bandage right hip Skin: No Rash or Ulcers, No Nodules or Sclerosis Neurological: Alert and Oriented x 3 Result Diagrams: 05/20/17 05:20 05/19/17 05:36 Additional Lab and Data: Laboratory Results - last 24 hr 05/20/17 05:20 Hgb 9.6 L Hct 28 L Assess/Plan/Problems-Billing Assessment: 82 yo female no PMH found to have moderate aortic stenosis and some regional wall motion abnormalities, p/w right femoral neck fracture s/p repair. Pending PMRU on 05/21 - Patient Problems (1) Right femoral fracture Current Visit: Yes Status: Acute Code(s): S72.91XA - UNSP FRACTURE OF RIGHT FEMUR, INIT FOR CLOS FX SNOMED Code(s): 88116721 Comment: Appreciate ortho assistance continue PT foam cushion to prevent leg crossing at night apixaban 2.5mg BID for DVT ppx per ortho plan PMRU admission 05/21l remove sharee (2) Moderate aortic stenosis Current Visit: Yes Status: Acute Code(s): I35.0 - NONRHEUMATIC AORTIC (VALVE ) STENOSIS SNOMED Code(s): 52674547 Comment: f/u as outpatient with ECHO (3) DVT prophylaxis Current Visit: Yes Status: Acute Code(s): EQT0028 - SNOMED Code(s): 982360717 Comment: apixaban (4) Regional wall motion abnormality of heart Current Visit: Yes Status: Acute Code(s): R93.1 - ABNORMAL FINDINGS ON DX IMAGING OF HEART AND COR CIRC SNOMED Code(s): 050716183 Comment: f/u with cardiology as outpatient. (5) Hyponatremia Current Visit: Yes Status: Acute Code(s): E87.1 - HYPO-OSMOLALITY AND HYPONATREMIA SNOMED Code(s): 04932577 Comment: repeat BMP Status and Disposition: medicine(transferred from [facility] 05/19) inpatient, plan d/c 05/21 to [facility] Attending: Dustin Higgins
[2017-05-20 11:47] LABS: BUN/Creatinine Ratio 37.4 (8-20); Calcium 9.4 mg/dL (8.6-10.3); EGFR African American 76.1 (>60); EGFR Non-African American 59.2 (>60); Magnesium 2.3 mg/dL (1.9-2.7); Potassium 4.3 mmol/L (3.5-5.0)
[2017-05-20 14:45] LABS: Creatine Kinase 68 U/L (38 - 176)
[2017-05-21 04:22] VITALS: BP 103/68
[2017-05-21 07:06] LABS: Hematocrit 28 % (35-47); Hemoglobin 9.4 g/dl (12.0-16.0)
[2017-05-21 08:32] LABS: Mean Corpuscular HGB Conc 33 g/dl (31-36); Mean Corpuscular Hemoglobin 30 pg (27-31); Mean Corpuscular Volume 91 fL (80-97); Mean Platelet Volume 9 um3 (7.4-10.4); Red Blood Count 3.16 10^6/ul (4.0-5.4); Red Cell Distribution Width 13 % (10.5-15); White Blood Count 8.5 10^3/ul (3.5-10.8)
[2017-05-21] MEDS: Apixaban* 2.5 MG TAB PO SCH (08:40)
[2017-05-21] MEDS: Pantoprazole IV* 40 MG IV SCH (08:40)
--- NOTE | 2017-05-21 10:28 | PN ---
Progress Note - Progress Note Date of Service: 05/21/17 SOAP: Subjective: Patient is comfortable, lying in bed. Objective: NAD RLE: - inc c/d/i - NVID Selected Entries 05/21/17 04:22 Temperature 98.4 F Pulse Rate 89 Respiratory 16 Rate Blood Pressure 103/68 (mmHg) O2 Sat by Pulse 95 Oximetry Laboratory Tests 05/17/17 05/19/17 05/20/17 22:30 01:55 05:20 WBC Hct 39 37 28 L Sodium Creatinine 05/20/17 05/21/17 05:20 06:57 WBC 8.5 Hct 28 L Sodium 135 Creatinine 0.91 Assessment: POD 3 R hip bipolar hemiarthroplasty Plan: - Eliquis - PT, WBAT, OOB - Posterior hip precautions, abduction brace at night - Likely dispo to PMRU today then discharge home when safe - Dressing change once daily in PMRU for 7 days postop - f/u with me in clinic ~14 days postop - Pain control
--- NOTE | 2017-05-21 12:13 | DS ---
DISCHARGE SUMMARY: DATE OF ADMISSION: 05/18/17 DATE OF DISCHARGE: ADMITTING PROVIDER: Nancy New, Orthopedic PA, (Kirby Oliver, orthopedic physician). PRIMARY CARE PROVIDER: RYAN Mercedes PAST MEDICAL HISTORY: Breast cancer, cataracts. CHIEF COMPLAINT: Fall with resultant right hip pain. PRINCIPAL DIAGNOSIS: Right femoral neck fracture. SECONDARY DIAGNOSES: Moderate aortic stenosis, regional wall motion abnormality /hypokinesis, but with preserved ejection fraction of 50% to 55%. HISTORY OF PRESENT ILLNESS: Jeanine Fox is an 82-year-old female, PMH as above , who caught her leg on the rug, had a mechanical fall on to her back and right hip and unable to get up. She was on the ground for 5 hours before a friend found her, brought her to the emergency room. Denied any chest pain, shortness of breath, dizziness, medication changes, or any blood thinners. X-ray was obtained, which showed impacted fracture with small degree of varus deformity in the right femoral neck. She had no previous known cardiac history, never seen a trench pipe layer. No pulmonary history, never seen a jukebox coin collector. No known heart attack or stroke history. Had a 5 beat run of V-tach, proceeded by bigEstorianharshal and hospitalist service was consulted for risk stratification. She had echocardiogram, which showed an ejection fraction of 55% with inferior wall motion abnormalities and moderate aortic stenosis. She was started on Lopressor 5 mg q.6 hours preoperatively and considered medically optimized and acceptable candidate for hip surgery which she had later on hospital day #1 done in chemical engraver hours, performed by Dr. Oliver. The patient recovered quickly, able to ambulate with a walker, working with physical therapy. She can be discharged to the PMR unit. She was started on apixaban 2.5 mg b.i.d. for a DVT prophylaxis. She will have outpatient cardiology followup with a new findings of her moderate aortic stenosis and some regional wall motion abnormalities. She had a slight leukocytosis on admission 13.8 and evon to 15.6 , but 8.5 by the day of discharge without any antibiotics or other intervention. Her troponins were initially 0.02, it evon to 0.06 on 05/18 down to 0.04. Her EKG of May 17 demonstrated intraventricular conduction delay with a QRS of 132 msec, had T-wave inversion in V3, aVF in lead III, a flat in V4, slightly inverted in V2, inverted in V1. Chest x-ray was obtained May 18 without any acute disease. The only antibiotic she received was perioperative cefazolin x3 doses. DISCHARGE MEDICATIONS: Include: 1. Apixaban 2.5 mg p.o. b.i.d. 2. Tylenol 650 mg p.o. q.6 hours. 3. Oxycodone/acetaminophen 5/325 mg 1 tab q.4 hours p.r.n. 4. Docusate 100 mg p.o. daily. DIET: Regular diet with increased fiber. ACTIVITY LEVEL: No restrictions, but needing to use a foam wedge at night to prevent crossing of legs. It is okay to shower, but no bathing, swimming, or submerging wound, use gentle soap, pad, dry, cover with gauze and González wrap. FOLLOWUP: The patient will follow up with Sergo Heath after discharge from [facility] and Kirby Oliver, orthopedic surgeon within 2 weeks at which time yaquelin will be removed. TIME SPENT: Time spent on discharge is 35 minutes. [id number]/[facility] #: [id number] KATIE
--- NOTE | 2017-05-22 04:14 | OP ---
DATE OF OPERATION: 05/18/17 - ROOM #350 DATE OF : 35 SURGEON: Kirby Oliver MD TOURS HOSTESS: RYAN Oliveira. A physician surgical assistant was required for the length of the procedure for patient positioning, retraction, and assistance with closure. ANESTHESIOLOGIST: Roseline Bhakta MD ANESTHESIA: General anesthesia. PRE-OP DIAGNOSIS: Displaced right femoral neck fracture. POST-OP DIAGNOSIS: Displaced right femoral neck fracture. OPERATIVE PROCEDURE: Right hip bipolar hemiarthroplasty. INDICATIONS: The patient is an 82-year-old woman, who lives in a house by herself and is a community ambulator without assist, who presented to the [facility] Emergency Department in the evening of 05/17/17 after a fall. The patient caught her leg in a rug at home and fell. She was unable to get up. She was found 5 hours later and brought to the emergency room. CT scan demonstrated a displaced right femoral neck fracture with translation of angulation at the fracture site. This is contrary to the details described in my physician surgical assistant's note, which describes an impacted fracture with a small degree of varus deformity. I would describe, based on CT image, there is not impaction and that there is significant angular deformity at the fracture site. The following morning, the patient admitted to the hospitalist team, was optimized for surgery. This included a transthoracic echocardiogram. Showed ejection fraction of 50% to 55%. The hospitalist service signed clear the patient for surgery. EKG was read as to show a distant past inferior wall myocardial infarction. The patient had a slightly elevated troponin preoperatively at 0.02. Therefore, we obtained a new troponin just before the procedure, which was 0.06. The hospitalist service and Anesthesia decided that the patient was optimized and cleared for surgery and I was confident in their decision. I had obtained a preoperative consent from the patient, written. I discussed risks and potential complications of surgery including bleeding, infection, nerve or blood vessel injury, blood clot, fracture intraoperatively or postoperatively, dislocation of prosthesis, hip pain, stiffness, and advance of arthritis. The patient opted for surgery. The surgery was delayed into the evening of 05/18/17. We proceeded forward. ANTIBIOTICS: Ancef 2 g IV. IV FLUIDS: 2300 cc crystalloid. ESTIMATED BLOOD LOSS: Less than 200 cc. COMPLICATIONS: None. SPECIMEN: Femoral head. IMPLANTS: Lorenzo M/L Taper cementless bipolar hemiarthroplasty system, right. 50 bipolar shell, 28 + 3.5 head, 13.5 standard ML taper stem DESCRIPTION OF PROCEDURE: Preoperatively, written consent was obtained from the patient. Operative extremity was marked in preoperative holding. The patient already had a bladder catheter placed. The patient was taken back to the operating room, placed supine on the operating table. The patient was sedated. An arterial line had been placed. The patient was placed in the lateral decubitus position on the peg board. The pegs were padded. An axillary roll had been placed. A U-drape and a 10/10 drape were used to sae out the field, and prevent any communication between the field, skin, and the perineum skin. The skin was well prepped with ChloraPrep multiple times. The right hip was draped. Surgical time-out was performed. Skin incision was made, in line with the femoral shaft, just posterior to the center of it, with a longitudinal incision centered at the proximal tip of the greater trochanter with the line proximally straight with the hip flexed 70 degrees. Incision was carried deeper through subcutaneous tissue with a deep knife. This was continued until the iliotibial band and gluteus reagan fascia were reached. They were cleared off with a Sorensen elevator. With the hip abducted, I then incised through the iliotibial band and gluteus reagan fascia. I then spread the gluteus reagan muscle. There were no bleeders to cauterize. I then fully extended the hip and internally rotated it. I removed some bursa about the posterior aspect of the hip joint and greater trochanter. I placed Cobra retractors, proximally and distally. I cleared off the external rotators and identified the piriformis tendon. I placed a figure-of-8 stitch in the piriformis tendon close to its femoral insertion. I peeled the piriformis off the femur with electrocautery. I then positioned the hip internally rotated and fully extended, I peeled off the remainder of the external rotators with electrocautery. I then peeled off some remaining capsule that had not been torn with the fracture, off the femur. I placed 3 additional figure-of-8 stitches through posterior capsule and external rotators. I had excellent bites with all of the sutures. This would enable me to retract these tissues during the case and prevent them from becoming caught in the hip joint. I next flexed and internally rotated the hip. I marked the femoral neck 1 cm proximal to the distal end of the neck adjacent to the lesser trochanter. I used a sample broach orientation guide to determine the appropriate angle of femoral neck cut. I cut the femoral neck with an oscillating saw. I removed the cut femoral neck. I next removed the femoral head with an painter and decorator apprentice instrument. I sized the femoral head. I, therefore, determined several possible femoral head sizes to choose from. I placed each into the acetabulum. I used the snugness of fit as well as visualization of whether the femoral head was fully seated in the acetabulum to determine the best fit of femoral head size. I next flexed and internally rotated the hip. I used a field cane scaler to remove some femoral neck. I then used a canal finder. I then used a lateralizing reamer. I then started with broaches, smaller to large from the M/L Taper System. I broached up to the larger size. My femoral neck cut seemed a little low, so I anticipated having some of the implant proud and I intentionally wanted to make this operative leg slightly long compared to the contralateral for stability purposes. With my final broach size, I then trialed the hip with a head and neck. The implants, trial, were stable to at least 90 degrees of internal rotation with the hip flexed 90 degrees and adducted. As well, there was no instability with full flexion and extension of the hip. I next placed the final femoral implant into the proximal femur. I then trialed again with 2 different neck lengths and my head trial. I chose to add some length through the neck. I used the first increased in lengths neck available, either a 3.3, 3.5, or 4.0 mm plus neck size. This trialing was likewise stable with the hip able to internally rotate almost 95 degrees with the hip flexed 90 degrees and the hip adducted before any stability was encountered. Final bipolar implants were placed on the femoral implants after profuse irrigation. Final implants were trialed and were likewise found to be incredibly stable. I then placed 2 holes through the posterior aspect and the proximal femur. I wanted to get even more substance of repair, so I placed a fifth figure-of-8 stitch through the posterior capsule and external rotators. I then brought 2 pairs of sutures through my proximal drill hole and 3 pairs of sutures through my distal drill hole. I tied these knots over the proximal femur. I really liked my posterior capsular and external rotator closure. It was quite snug and taut throughout range of motion of the hip. Irrigation. Closure of the gluteus reagan fascia and iliotibial band was accomplished with figure-of-8 stitches using Vicryl 0 suture distally and proximally, a running stitch with Vicryl 0 suture. Closure of the subcutaneous tissues, deep and superficial with buried simple stitches using a Vicryl 2-0 suture. Closure of the skin with yaquelin. Xeroform, 4x4's, ABDs, foam tape. An abduction pillow was strapped and placed between the 2 legs. The patient was returned to the supine position. The patient was extubated and transferred to the PACU. The patient was to be re-admitted to hospitalist service postoperatively. She was to be started on Eliquis, in the evening of 05/19/17, 2.5 mg p.o. b.i.d. x4 weeks postoperatively. She will receive Percocet and morphine for pain control , physical therapy for weightbearing as tolerated on the right lower extremity, out of bed. Ancef 1 g IV q.8 hours x24 hours postoperatively. The patient will be seen in clinic approximately 14 days postoperatively with x-rays and removal of yaquelin. [id number]/[facility] #: [id number] MTDD
== END 2017-05-21 11:50 | DRG 470 ==
LOC: ED 21:21 → SSU 05-18 00:45 → OBSVTOIN 05-18 00:50 → MEDTELE 05-18 13:47 → ICU 05-19 00:45 → SSU 05-19 12:56
PROVIDERS: ADMIT Physician Assistant; ATTEND Internal Medicine
PROC: 0SRR0JA Replacement of Right Hip Joint, Femoral Surface with Synthetic Substitute, Uncemented, Open Approach (ICD-10-PCS; principal; 2017-05-18 15:00)
DX: S72.001A Fracture of unspecified part of neck of right femur, initial encounter for closed fracture (principal); I47.2 Ventricular tachycardia; I45.10 Unspecified right bundle-branch block; I35.0 Nonrheumatic aortic (valve) stenosis; E83.52 Hypercalcemia; E87.1 Hypo-osmolality and hyponatremia; H26.9 Unspecified cataract; R40.2412 Glasgow coma scale score 13-15, at arrival to emergency department; I49.3 Ventricular premature depolarization; R93.1 Abnormal findings on diagnostic imaging of heart and coronary circulation; M21.151 Varus deformity, not elsewhere classified, right hip; W17.89XA Other fall from one level to another, initial encounter; Y92.009 Unspecified place in unspecified non-institutional (private) residence as the place of occurrence of the external cause; Z88.8 Allergy status to other drugs, medicaments and biological substances; Z90.11 Acquired absence of right breast and nipple; Z87.891 Personal history of nicotine dependence; Z82.49 Family history of ischemic heart disease and other diseases of the circulatory system; Z85.3 Personal history of malignant neoplasm of breast; Z82.3 Family history of stroke; Z79.01 Long term (current) use of anticoagulants
CPT/HCPCS: 36415; 71010; 72170; 72192; 80048; 80053; 81003; 81015; 82550; 82553; 83605; 83735; 84484; 85014; 85018; 85025; 85027; 85610; 85730; 86850; 86900; 86901; 93005; 93306; A9270-GY; C1776; J0690; J1100; J1170; J1885; J2250; J2270; J2405; J2704; J3010; J3475

== ENCOUNTER 2017-05-21 10:27 | Inpatient (IN) | payer MEDICARE ==
[2017-05-21] MEDS ORDERED: Acetaminophen TAB* 325 MG PO PRN (13:05)
[2017-05-21] MEDS ORDERED: Magnesium Hydroxide LIQ* 30 ML UDC PO PRN (13:05)
[2017-05-21] MEDS ORDERED: Senna TAB PO PRN (13:05)
[2017-05-21] MEDS ORDERED: oxyCODONE/Acetamin 5/325 MG* TAB PO PRN (13:13)
[2017-05-21] MEDS: Apixaban* 2.5 MG TAB PO SCH (20:48)
[2017-05-21] MEDS: Docusate CAP* 100 MG PO SCH (20:48)
--- NOTE | 2017-05-21 21:27 | HP ---
ADMISSION HISTORY AND PHYSICAL: DATE OF ADMISSION: 05/21/17 REASON FOR ADMISSION: Right hip fracture. HISTORY OF PRESENT ILLNESS: Jeanine Fox is an 82-year-old female. She has a history of breast cancer. However, she has not seen a doctor in a while. She says her primary care doctor is BRIAN Rapp, but she has not seen him in several years. She was taking no medications prior to admission. On 05/18/17, she was in her house and her foot caught on the rug and she fell on to her right hip. She was unable to get up. A family friend came home after she lied on the ground for 5 hours. He called 911 and she was brought to the hospital emergency room. X-rays were taken which showed a displaced femoral neck fracture. She was seen in consultation by Dr. Kirby Oliver. She was taken to the operating room on 05/19/17 and underwent a right hip hemiarthroplasty. Postoperatively, her course has been fairly benign. She was felt to have physical therapy and occupational therapy needs. She is now being admitted for inpatient rehab, so that she might return to independent living. PAST MEDICAL HISTORY: As mentioned, not really significant. She was found to have moderate aortic stenosis with an ejection fraction of 50% to 55% on echo. The patient was found to have a 5-beat run of V-tach on cardiac monitoring and later an echo showed the moderate aortic stenosis. CURRENT MEDICATIONS: Include: 1. Eliquis for DVT prophylaxis. 2. She is on bowel medications. 3. Percocet for analgesia. ALLERGIES: She has an allergy listed to LISINOPRIL. SOCIAL HISTORY: She is a nonsmoker, nondrinker. Lives by herself in a two- breanne 16-room house in [place], [place]. At present, she has 2 family friends staying with her. Her sister intends to move in with her on Monday. REVIEW OF SYSTEMS: The patient reports no current shortness of breath or chest pain. PHYSICAL EXAMINATION VITAL SIGNS: The patient's temperature is 99.1, blood pressure is 128/58, pulse is 107, respirations 18. HEENT: Her extraocular movements are intact. Tongue is midline. NECK: Supple. LUNGS: Sound clear to auscultation bilaterally. HEART: Sounds are regular. S1 and S2 are audible. Grade 2 systolic murmur was audible. ABDOMEN: Soft and nontender. EXTREMITIES: Her right hip has a wound which is clean and dry. Peripheral pulses were intact. NEUROLOGIC: She is awake, alert, oriented. Muscle strength 5/5 in both upper and lower extremities. FUNCTIONAL EXAM: She transfers with contact guard. ASSESSMENT: Hemiarthroplasty of the right hip after a displaced right femoral neck fracture. PLAN: Integrate her into a comprehensive and therapeutic rehab program with the following goals: 1. Physical Therapy will see the patient. They are going to work on functional transfer training and ambulation training with a walker. 2. Occupational Therapy will see the patient and work on her activities of daily living including toileting and toilet transfers. 3. Eliquis for DVT prophylaxis. 4. Adequate analgesia. 5. Her bowels will be regulated. 6. oil well services dispatcher will be closely involved to make sure that any services and equipment that the patient requires are in place prior to discharge. 7. Family training as appropriate. 8. Advance directives: She is a full code. Her daughter is her healthcare proxy. 9. Home with appropriate services. ESTIMATED LENGTH OF STAY: Seven days. [id number]/[facility] #: [id number] KATIE
[2017-05-22 07:05] LABS: Hematocrit 28 % (35-47); Hemoglobin 9.6 g/dl (12.0-16.0); Mean Corpuscular HGB Conc 34 g/dl (31-36); Mean Corpuscular Hemoglobin 30 pg (27-31); Mean Corpuscular Volume 89 fL (80-97); Mean Platelet Volume 8 um3 (7.4-10.4); Red Blood Count 3.17 10^6/ul (4.0-5.4); Red Cell Distribution Width 13 % (10.5-15); White Blood Count 8.8 10^3/ul (3.5-10.8)
[2017-05-22 07:24] LABS: Albumin 2.9 g/dL (3.2-5.2); BUN/Creatinine Ratio 28.6 (8-20); Calcium 9.9 mg/dL (8.6-10.3); EGFR Non-African American 80.1 (>60); Potassium 3.8 mmol/L (3.5-5.0); Total Bilirubin 0.6 mg/dL (0.2-1.0); Total Protein 5.9 g/dL (6.4-8.9)
[2017-05-22] MEDS: Apixaban* 2.5 MG TAB PO SCH ×2 (08:50→19:55)
[2017-05-22] MEDS: Docusate CAP* 100 MG PO SCH ×2 (08:50→19:55)
--- NOTE | 2017-05-22 17:31 | PN ---
Progress Note - Progress Note Date of Service: 05/22/17 Note: Jeanine visited. Therapy notes read and reviewed. She is still on oxygen via nasal canula. She seems to be doing very well. Current Medications Acetaminophen (Tylenol Tab*) 650 mg PO Q6H PRN PRN Reason: FEVER/PAIN Last Admin: 05/22/17 08:52 Dose: 650 mg Apixaban (Eliquis) 2.5 mg PO BID [facility] Last Admin: 05/22/17 08:50 Dose: 2.5 mg Docusate Sodium (Colace Cap*) 100 mg PO BID [facility] Last Admin: 05/22/17 08:50 Dose: 100 mg Magnesium Hydroxide (Milk Of Magnesia Liq*) 30 ml PO Q6H PRN PRN Reason: CONSTIPATION Oxycodone/Acetaminophen (Percocet 5/325 Tab*) 1 tab PO Q4H PRN PRN Reason: PAIN - MODERATE TO SEVERE Senna (Senokot Tab*) 2 tab PO BEDTIME PRN PRN Reason: CONSTIPATION Laboratory Results - last 24 hr 05/22/17 05/22/17 06:53 06:53 WBC 8.8 RBC 3.17 L Hgb 9.6 L Hct 28 L MCV 89 MCH 30 MCHC 34 RDW 13 Plt Count 256 MPV 8 Neut % (Auto) 69.3 Lymph % (Auto) 14.2 L [place] % (Auto) 14.2 H Eos % (Auto) 1.8 Baso % (Auto) 0.5 Absolute Neuts (auto) 6.1 Absolute Lymphs (auto) 1.2 Absolute Monos (auto) 1.2 H Absolute Eos (auto) 0.2 Absolute Basos (auto) 0 Absolute Nucleated RBC 0 Nucleated RBC % 0 Sodium 138 Potassium 3.8 Chloride 105 Carbon Dioxide 30 Anion Gap 3 BUN 20 Creatinine 0.70 Est GFR ( Amer) 103.0 Est GFR (Non-Af Amer) 80.1 BUN/Creatinine Ratio 28.6 H Glucose 103 H Calcium 9.9 Total Bilirubin 0.60 AST 21 ALT 6 L Alkaline Phosphatase 63 Total Protein 5.9 L Albumin 2.9 L Globulin 3.0 Albumin/Globulin Ratio 1.0 Vital Signs Temp Pulse Resp BP Pulse Ox 98.4 F 103 18 127/74 96 05/22/17 15:53 05/22/17 15:53 05/22/17 15:53 05/22/17 15:53 05/22/17 15:53 EXAM: LUNGS: Clear bilaterally HEART: Reg rhythm ABDOMEN: Soft, + BS EXTREMITIES: Some edema RLE ASSESSMENT/PLAN: 1. Right hip fracture: PT/OT 2. DVT Prophylaxis: Eliquis 3. Acute Blood loss Anemia: Follow Hb/HCT 4. Code Status: Full Code
[2017-05-23] MEDS: Apixaban* 2.5 MG TAB PO SCH ×2 (08:08→20:09)
[2017-05-23] MEDS: Docusate CAP* 100 MG PO SCH ×2 (08:08→20:09)
--- NOTE | 2017-05-23 12:36 | PMRUTEAM ---
PMRU: Goals Current Status: Nursing: Current Status Skin Deviations [Right Hip] Incision Physical Therapy: Current Status Bed Mobility Assistance Independent Transfer Moblility Assistance Supervision Transfer/Bed Mobility Rolling Walker Recommended Devices Ambulation Assistance Supervision Ambulation Assistive Devices Rolling Walker Number of Feet Patient 150' Ambulated Stairs Assistance Supervision Stairs Recommended Devices Two Rails Number of Stairs 5 Occupational Therapy: Current Status Upper Body Dressing Independent Lower Body Dressing Ind with Adaptive Equip Bathing Ind with Adaptive Equip Toileting Ind with Adaptive Equip Toilet Transfer Ind with Adaptive Equip Shower Transfer Ind with Adaptive Equip Eating Independent Rec Therapy: Current Status Summary of Assessment and RT assessment complete and pt. is aware of RT Clinical Impression services. Pt. is open to continued leisure visits . Treatment Goals Pt. will engage in leisure activities while on the unit. Treatment Plan Provide RT services and encourage involvement. Social Work: Current Status Discharge Plan return home with home care svs and support from family and friends Potential for Family Training TBD Anticipated Discharge Home Destination Discharge With Life Time Care and support from family and friends Nutrition: Current Status Monitoring pt generally eating well w/regular diet. Wt is adequate (BMI 21) and stable. Labs unremarkable. Skin is intact. At this time, no nutrition risk is identified and no specific intervention is planned. Full assessment planned 05/31 unless pt d/c'd home prior to that date. Goals: Physical Therapy: Initial Goals Bed Mobility Assistance Independent Transfer Mobility Assistance Independent Transfer/Bed Mobility Rolling Walker Recommended Devices Ambulation Independent Ambulation Recommended Devices Rolling Walker Ambulation Distance 250 Stairs Assistance Independent Stair Recommended Devices One Rail Number of Stairs 5 Home Exercise Program Independent Assistance Physical Therapy: Updated Goals Bed Mobility Assistance Independent Transfer Mobility Assistance Independent Transfer/Bed Mobility Rolling Walker,Railings Recommended Devices Ambulation Assistance Independent Ambulation Assistive Devices Rolling Walker Ambulation Distance (ft) 150 Stairs Assistance Independent Stairs Recommended Devices Two Rails Number of Stairs 5 Home Exercise Program Independent Assistance Occupational Therapy: Initial Goals Goals to be Completed in (Days 1-2 ) Upper Body Bathing Routine Independent Lower Body Bathing Routine Modified Independent with Upper Body Dressing Routine Independent Lower Body Dressing Routine Modified Independent with Toilet Hygeine and Clothing Modified Independent with Management Routine Toilet Transfer Routine Modified Independent with Step-In Shower Transfer Modified Independent with Routine Functional Transfers for ADL Modified Independent with Grooming Routine Independent Feeding Routine Independent Nutrition: Goals Intervention Goals 1. adequate po intake to maintain stable weight and prevent loss of lean body mass 2. adequate po intake to maintain intact skin integrity 3. maintain bowel regularity without constipation or diarrhea Social Work: Goals Discharge Plan return home with home care svs and support from family and friends Potential for Family Training TBD Anticipated Discharge Home Destination Discharge With Life Time Care and support from family and friends Care Plan: Care Plan ADL's - Improve/Maintain Start: 05/22/17 11:33 Freq: QSHIFT Status: Active Target: Protocol: Activity Type Activity Date Activity User E-Sign Co-Sign Detail Recorded Client Recorded Date Recorded By Document 05/22/17 11:33 [id number] 05/22/17 11:33 [id number] 05/22/17 11:33 PMRU Outcome: ADL's/ADL Transfers Orders/Interventions Occupational Therapy Evaluation & Treatment Device Yes Patient to receive OT 5x/wk for 60-120 Therex min/day Self Care Management Group Therapy UE/LE ADL's with Assist Yes ADL Transfers with Assist Yes Toileting: Transfers,Clothing Management Yes ,Hygeine w/Assist Light Kitchen/Laundry w/Assist Yes Progression Toward Outcome/Goals Progressing Cardiovascular- Improve/Maintain Start: 05/23/17 01:29 Freq: QSHIFT Status: Active Target: Protocol: Activity Type Activity Date Activity User E-Sign Co-Sign Detail Recorded Client Recorded Date Recorded By Document 05/23/17 10:34 [id number] [id number] 05/23/17 10:56 [id number] 05/23/17 10:34 PMRU Outcome: Cardiovascular Vital Signs q Shift for 48hrs Then BID Yes Daily Weight Ordered No Current Cardiovascular Outcome/Goal Maintain/ Achieve Baseline HR, BP , Perfusion Progression Toward Outcome/Goal Progressing DVT Prophylaxis- Improve/Maintain Start: 05/23/17 01:29 Freq: QSHIFT Status: Active Target: Protocol: Activity Type Activity Date Activity User E-Sign Co-Sign Detail Recorded Client Recorded Date Recorded By Document 05/23/17 10:34 [id number] [id number] 05/23/17 10:56 [id number] 05/23/17 10:34 PMRU Outcome: DVT Prophylaxis Outcome/Goals Remains Free of DVT TEDS Stockings on Every AM, Off at HS Progression Toward Outcome/Goals Progressing Discharge Planning - Improve/Maintain Start: 05/23/17 01:29 Freq: QSHIFT Status: Active Target: Protocol: Activity Type Activity Date Activity User E-Sign Co-Sign Detail Recorded Client Recorded Date Recorded By Document 05/23/17 10:34 [id number] [id number] 05/23/17 10:56 [id number] 05/23/17 10:34 PMRU Outcome: Discharge Planning Identify Patient Needs yes Update Patient Family No Outcome/Goals Demonstrates Understanding of Discharge Plan Progression Toward Outcome/Goals Progressing Education-Improve/Maintain Start: 05/23/17 01:29 Freq: QSHIFT Status: Active Target: Protocol: Activity Type Activity Date Activity User E-Sign Co-Sign Detail Recorded Client Recorded Date Recorded By Document 05/23/17 10:34 [id number] [id number] 05/23/17 10:56 [id number] 05/23/17 10:34 PMRU Outcome: Education Outcome/Goals Demonstrate/ Verbalize Understanding of Written Discharge Instructions Demonstrates Skills Encourage Questions Progression Toward Outcome/Goals Progressing Mobility- Improve/Maintain Start: 05/23/17 01:29 Freq: QSHIFT Status: Active Target: Protocol: Activity Type Activity Date Activity User E-Sign Co-Sign Detail Recorded Client Recorded Date Recorded By Document 05/23/17 07:42 [id number] [email or web address] 05/23/17 07:43 [id number] 05/23/17 07:42 PMRU Outcome: Mobility Physical Therapy Evaluation and Yes Treatment Activity OOB with Assistance Yes WBAT Yes Device Yes Assistance Yes Patient to be seen 5x/wk for 60-120 min/ Therex day for: Mobility Training Gait Training Outcome/Goals Maintain/ Achieve Baseline Mobility Status Improve Mobility Status Demonstrates Proper Use of Assistive Devices Free from Complications of Immobility Progression Toward Outcome/Goals Progressing Bed Mobility Yes Transfers Yes Gait x ft Yes Up/Down Stairs 4 With HEP Yes Neurological- Improve/Maintain Start: 05/23/17 01:29 Freq: QSHIFT Status: Active Target: Protocol: Activity Type Activity Date Activity User E-Sign Co-Sign Detail Recorded Client Recorded Date Recorded By Document 05/23/17 10:34 [id number] 05/23/17 10:56 [id number] 05/23/17 10:34 PMRU Outcome: Neurological Weakness/Aphasia Weakness Right Side Outcome/Goals Maintain/ Achieve Baseline Neurological Status Maintain/ Improve Strength/ROM Progression Toward Outcome/Goals Progressing Pain/Comfort- Improve/Maintain Start: 05/23/17 01:29 Freq: QSHIFT Status: Active Target: Protocol: Activity Type Activity Date Activity User E-Sign Co-Sign Detail Recorded Client Recorded Date Recorded By Document 05/23/17 10:34 [id number] 05/23/17 10:56 [id number] 05/23/17 10:34 PMRU Outcome: Pain/Comfort Outcome/Goals Demonstrates Knowledge and Use of Available Comfort Measures Achieves Acceptable Comfort/Pain Level as Determined by Patient/Condit Maintain Comfort Level Allowing Patient to Fully Participate in Rehab Progression Toward Outcome/Goals Progressing Outcome/Goals Met Comment denies pain at this time Safety- Improve/Maintain Start: 05/23/17 01:29 Freq: QSHIFT Status: Active Target: Protocol: Activity Type Activity Date Activity User E-Sign Co-Sign Detail Recorded Client Recorded Date Recorded By Document 05/23/17 10:34 [id number] [id number] 05/23/17 10:56 [id number] 05/23/17 10:34 PMRU Outcome: Safety Outcome/Goals Remain Free of Injury or Harm Cooperates with Safety Measures for Least Restrictive Environment Prevent Falls/ Injury Progression Toward Outcome/Goals Progressing Skin- Improve/Maintain Start: 05/23/17 01:29 Freq: QSHIFT Status: Active Target: Protocol: Activity Type Activity Date Activity User E-Sign Co-Sign Detail Recorded Client Recorded Date Recorded By Document 05/23/17 10:34 [id number] [id number] 05/23/17 10:56 [id number] 05/23/17 10:34 PMRU Outcome: Skin Skin Risk Level Medium Skin Orders Dressing Change Outcome/Goals Maintain/ Improve Skin Intergrity Surgical Incisions Healing Progression Toward Outcome/Goals Progressing Medicine Note: Length of Stay: 1 day Anticipated Discharge Destination: Home Tentative Discharge Date: 05/24/17 Discharged to: Home
--- NOTE | 2017-05-23 16:30 | PN ---
Progress Note - Progress Note Date of Service: 05/23/17 Note: Jeanine visited. She was discussed in interdisciplinary team rounds. She is doing very well. She is still requiring supplemental O2 and given her long smoking history, likely has COPD. She will need O2 at home Current Medications Acetaminophen (Tylenol Tab*) 650 mg PO Q6H PRN PRN Reason: FEVER/PAIN Last Admin: 05/22/17 08:52 Dose: 650 mg Apixaban (Eliquis) 2.5 mg PO BID [facility] Last Admin: 05/23/17 08:08 Dose: 2.5 mg Docusate Sodium (Colace Cap*) 100 mg PO BID [facility] Last Admin: 05/23/17 08:08 Dose: 100 mg Magnesium Hydroxide (Milk Of Magnesia Liq*) 30 ml PO Q6H PRN PRN Reason: CONSTIPATION Oxycodone/Acetaminophen (Percocet 5/325 Tab*) 1 tab PO Q4H PRN PRN Reason: PAIN - MODERATE TO SEVERE Senna (Senokot Tab*) 2 tab PO BEDTIME PRN PRN Reason: CONSTIPATION Last Admin: 05/22/17 19:55 Dose: 2 tab Vital Signs Temp Pulse Resp BP Pulse Ox 101.2 F 92 20 117/59 91 05/23/17 05:24 05/23/17 05:24 05/23/17 05:24 05/23/17 05:24 05/23/17 08:15 EXAM: LUNGS: Clear bilaterally HEART: Reg rhythm ABDOMEN: Soft, + BS EXTREMITIES: Some edema RLE ASSESSMENT/PLAN: 1. Right hip fracture: PT/OT 2. DVT Prophylaxis: Eliquis 3. Acute Blood loss Anemia: Follow Hb/HCT 4. Code Status: Full Code 5. Likely COPD: Supplemental O2, will need to follow up with primary care
[2017-05-24 05:28] VITALS: BP 133/70
[2017-05-24] MEDS: Apixaban* 2.5 MG TAB PO SCH (08:37)
[2017-05-24] MEDS: Docusate CAP* 100 MG PO SCH (08:37)
--- NOTE | 2017-05-25 08:34 | DS ---
CC: Dr. Kirby Oliver; Sergo Heath, physician podiatry assistant in [place], [place] * DISCHARGE SUMMARY: DATE OF ADMISSION: 05/21/17 DATE OF DISCHARGE: 05/24/17 DISCHARGE DIAGNOSES: 1. Right hip fracture status post hemiarthroplasty of the same. 2. Chronic obstructive pulmonary disease. 3. Aortic stenosis. 4. Breast cancer. HISTORY OF ILLNESS AND HOSPITAL COURSE: For complete history of the events leading up to her rehab stay, please see the history and physical dictated by me on 05/21/17. While on the rehab unit, Jeanine was largely medically stable. She was maintained on Eliquis for DVT prophylaxis. She had difficulty weaning off oxygen. questioning was felt that she had a significant smoking history and had COPD. Arrangements were made for her to have supplemental oxygen at home. Otherwise, she was medically stable. She was seen by both physical and occupational therapy while on the rehab unit. She made good gains with both disciplines. With physical therapy at the time of admission, the patient required contact guard to do her transfers. She was able to ambulate with contact guard. With occupational therapy, she was min assist for lower body dressing, supervision for upper body dressing, min assist for bathing and contact guard with toileting. By the time of discharge, she was independent in all activities. She was discharged home 05/24/17. DISCHARGE DIET: Regular. DISCHARGE MEDICATIONS: 1. Eliquis 2.5 mg twice daily. 2. Percocet 5/325 one tablet every 4 hours as needed for pain with a maximum daily dose 2. 3. Colace 100 mg twice daily. 4. Tylenol 650 mg every 6 hours as needed. SERVICES AFTER DISCHARGE: Through [facility], she will have home nursing, home physical therapy, and a home health aide. Follow up with Dr. Kirby Oliver in 1 to 2 weeks for suture removal. She will also follow up with her primary care provider Mr. Heath. [id number]/[facility] #: [id number] KATIE
== END 2017-05-24 13:00 | disposition home health service (06) | DRG 561 ==
LOC: PMRU 11:50 → UNDOADMIN 12:04
PROVIDERS: ADMIT Physical Medicine & Rehabilitation; ATTEND Physical Medicine & Rehabilitation
PROC: F07Z5ZZ Bed Mobility Treatment (ICD-10-PCS; principal; 2017-05-21)
PROC: F07Z9ZZ Gait Training/Functional Ambulation Treatment (ICD-10-PCS; 2017-05-21)
PROC: F07Z8ZZ Transfer Training Treatment (ICD-10-PCS; 2017-05-21)
PROC: F08Z0ZZ Bathing/Showering Techniques Treatment (ICD-10-PCS; 2017-05-21)
PROC: F08Z1ZZ Dressing Techniques Treatment (ICD-10-PCS; 2017-05-21)
PROC: F08Z3ZZ Feeding/Eating Treatment (ICD-10-PCS; 2017-05-21)
DX: Z47.1 Aftercare following joint replacement surgery (principal); J44.9 Chronic obstructive pulmonary disease, unspecified; I35.0 Nonrheumatic aortic (valve) stenosis; Z96.641 Presence of right artificial hip joint; S72.001D Fracture of unspecified part of neck of right femur, subsequent encounter for closed fracture with routine healing; W18.09XD Striking against other object with subsequent fall, subsequent encounter; Z85.3 Personal history of malignant neoplasm of breast; Z88.8 Allergy status to other drugs, medicaments and biological substances
CPT/HCPCS: 36415; 80053; 85025; A9270-GY

== ENCOUNTER 2017-11-04 13:41 | Inpatient (IN) | payer MEDICARE, BC ==
--- NOTE | 2017-11-04 16:03 | RAD ---
INDICATION: Right lower extremity pain and shortness of breath. COMPARISON: There are no prior studies available for comparison. TECHNIQUE: Multiple real-time, color flow and Doppler tracings of the right lower extremity were obtained. FINDINGS: There is nonocclusive deep venous thrombus within the right common femoral vein and occlusive deep venous thrombus within the femoral, popliteal and posterior tibial veins. The profunda femoral and peroneal veins appear patent. IMPRESSION: EXTENSIVE DEEP VENOUS THROMBUS PRESENT WITHIN THE COMMON FEMORAL, FEMORAL, POPLITEAL AND POSTERIOR TIBIAL VEINS.
[2017-11-04 16:22] LABS: ABS Basophils 0.1 10^3/ul (0-0.2); ABS Eosinophils 0 10^3/ul (0-0.6); ABS Lymphocytes 0.6 10^3/ul (1.0-4.8); ABS Monocytes 1.3 10^3/ul (0-0.8); ABS Neutrophils 14.5 10^3/ul (1.5-7.7); ABS Nucleated RBC 0 10^3/ul; Eosinophil % 0.3 % (0-6); Hematocrit 31 % (35-47); Hemoglobin 9.9 g/dl (12.0-16.0); Lymphocyte % 3.7 % (25-47); Mean Corpuscular HGB Conc 32 g/dl (31-36); Mean Corpuscular Hemoglobin 25 pg (27-31); Mean Corpuscular Volume 80 fL (80-97); Mean Platelet Volume 7.6 um3 (7.4-10.4); Nucleated Red Blood Cells % 0; Platelet Count 320 10^3/ul (150-450); Red Blood Count 3.88 10^6/ul (4.0-5.4); Red Cell Distribution Width 15 % (10.5-15); White Blood Count 16.6 10^3/ul (3.5-10.8)
--- NOTE | 2017-11-04 16:30 | RAD ---
INDICATION: Shortness of breath. COMPARISON: Comparison is made with a prior study from May 18, 2017. TECHNIQUE: AP and lateral views of the chest were obtained. FINDINGS: The heart is within normal limits in size. The patient is rotated toward the left side limiting the study. There is mild prominence of the interstitial markings within the right lung. The left lung appears clear. No pleural effusion is seen. IMPRESSION: RIGHT LUNG INTERSTITIAL INFILTRATE.
[2017-11-04 16:35] LABS: EGFR Non-African American 64.9 (>60)
[2017-11-04] MEDS ORDERED: NS 0.9% 1000 ML*IV.FLUID IV ONE (16:42)
[2017-11-04] MEDS ORDERED: Azithromycin IV(*) 500 MG in NS 0.9% 250 ML* 250 ML IVPB ONE (16:42)
[2017-11-04] MEDS ORDERED: cefTRIAXone(*) 1 GM in NS 0.9% 50 ML* 50 ML IVPB ONE (16:42)
[2017-11-04] MEDS ORDERED: Iohexol 350* (CONTRAST) 500 ML MDV IV ONE (17:15)
--- NOTE | 2017-11-04 18:04 | RAD ---
INDICATION: Shortness of breath, DVT, history of cancer. COMPARISON: Comparison is made with a prior chest x-ray study of the same date. TECHNIQUE: A CT angiogram of the chest was performed with intravenous following intravenous injection of 58 ml of Omnipaque 350 nonionic contrast. Contiguous axial sections were obtained from the lung apices through the lung bases. Images were reconstructed in the coronal and sagittal planes. FINDINGS: There is an intraluminal filling defect present within the distal right main pulmonary artery extending into the right middle lobe segmental artery branches consistent with pulmonary emboli. No other intraluminal filling defects are seen. The heart is within normal limits in size. There are coronary artery calcifications present. No pericardial effusion is present. The thoracic aorta is normal in caliber and demonstrates homogeneous contrast opacification. There is moderate to severe centrilobular emphysematous change. There is a large pleural-based mass present medially at the right lung apex measuring 5.7 x 4.4 x 6.0 cm in size. This is eroding into the T4-T5 vertebral bodies. There is mild epidural extension laterally on the right side of the spinal canal without gross evidence for spinal cord compression. There is also extension into the adjacent neural foramina. There is a calcified 0.6 cm right upper lobe pulmonary nodule. There are several noncalcified nodules present in the right middle and lower lobes measuring up to 0.6 cm in size suspicious for metastatic disease. No pleural effusion is present. There are multiple confluent enlarged mediastinal lymph nodes present in the right paratracheal, pretracheal, subcarinal regions. The mediastinal and hilar mass abuts the anterior and right lateral aspect of the tracheal and surrounds the right mainstem bronchus which appears narrowed. No abnormality is seen on the images of the upper abdomen. No additional focal osseous abnormalities are seen. The results of this exam were discussed with the referring clinician. IMPRESSION: 1. MULTIPLE PULMONARY EMBOLI. 2. LARGE RIGHT UPPER LOBE PLEURAL-BASED MASS MOST CONSISTENT WITH A PRIMARY LUNG CARCINOMA. THERE IS EROSION INTO THE T4 AND T5 VERTEBRAL BODIES AND MILD EPIDURAL EXTENSION AT THE T4 LEVEL AND EXTENSION INTO THE ADJACENT NEURAL FORAMEN. 3. ADDITIONAL SMALL PULMONARY NODULES MOST CONSISTENT WITH METASTATIC DISEASE. 4. LARGE CONFLUENT MEDIASTINAL AND RIGHT HILAR MASS CONSISTENT WITH METASTATIC ADENOPATHY SURROUNDING AND NARROWING THE RIGHT MAINSTEM BRONCHUS. 5. MODERATE TO SEVERE CENTRILOBULAR EMPHYSEMATOUS CHANGE.
--- NOTE | 2017-11-04 18:56 | ADMNOTE ---
Subjective Date of Service: 11/04/17 Interval History: ADMISSION HISTORY AND PHYSICAL EXAM: Allergies Allergy/AdvReac Type Severity Reaction Status Date / Time lisinopril Allergy Coughing Verified 11/04/17 15:27 Home Medications Medication Instructions Recorded Confirmed Type Acetaminophen TAB* [Tylenol TAB*] 650 mg PO Q6H PRN 11/04/17 11/04/17 History HPI: The patient lost her appetite several months ago and gradually lost 25 lbs. She states her weight never changed much since high school except when she was . The last few weeks she felt weaker and had some ENGEL. No pain, LOC. Little cough. Family History: Findings - Both of her daughters had breast cancer. Social History: Findings - Quit smoking 15+ yrs ago. No alcohol use. SDM is daughter Amairani Winters [phone] ([place]) Past Medical History: Findings - R mastectomy for breast cancer 2002 [place], [place], triple-negative, had chemo and a port. BL cataract sx, appy 195, 5 children, fx L clavicle, R hip ORIF for fx 05/2017. Review of Systems - Measurements Intake and Output: Intake and Output Last 24 Hours 11/02/17 11/03/17 11/04/17 11/05/17 06:59 06:59 06:59 06:59 Intake Total 300 Balance 300 Weight 115 lb Intake: IV Fluids 300 - Review of Systems Constitutional Symptoms: Positive: Weight Loss - see HPI Dermatology: Positive: Normal HEENT: Positive: Normal Eyes: Positive: Normal Thyroid: Positive: Normal Objective Active Medications: Heparin Sodium/Dextrose (Heparin Drip 25,000 Units(*)) 25,000 units in 500 mls @ 0 mls/hr IV PER RATE WENDY; Per Protocol PRN Reason: Protocol Vital Signs - 8 hr 11/04/17 11/04/17 11/04/17 13:49 16:30 17:00 Temperature 97.2 F Pulse Rate 110 112 110 Respiratory 16 Rate Blood Pressure 126/72 (mmHg) O2 Sat by Pulse 93 91 95 Oximetry 11/04/17 11/04/17 11/04/17 17:15 17:45 18:00 Temperature Pulse Rate 109 110 110 Respiratory 26 16 Rate Blood Pressure 136/80 145/87 (mmHg) O2 Sat by Pulse 93 97 95 Oximetry 11/04/17 18:15 Temperature Pulse Rate 109 Respiratory 29 Rate Blood Pressure 142/83 (mmHg) O2 Sat by Pulse 96 Oximetry Oxygen Devices in Use Now: Nasal Cannula Appearance: Alert, partly up on ED stretcher. In good spirits. Looks comfortable. Eyes: No Scleral Icterus Ears/Nose/Mouth/Throat: Clear Oropharnyx, Mucous Membranes Moist Neck: NL Appearance and Movements; NL JVP, No Thyroid Enlargement, Masses Respiratory: Symmetrical Chest Expansion and Respiratory Effort, Clear to Auscultation Cardiovascular: NL Sounds; No Murmurs; No JVD, RRR, No Edema, - Abdominal: NL Sounds; No Tenderness; No Distention, No Hepatosplenomegaly, - Lymphatic: No Cervical Adenopathy, No Axillary Adenopathy Extremities: No Edema, No Clubbing, Cyanosis, - Skin: No Rash or Ulcers, No Nodules or Sclerosis, - Neurological: Alert and Oriented x 3, NL Sensation Result Diagrams: 11/04/17 21:11 11/04/17 21:11 Microbiology and Other Data: Microbiology 11/04/17 16:51 Influenza Types A,B Antigen (ODETTE) - Final Nasal Specimen received for Influenza A/B Molecular testing Assess/Plan/Problems-Billing Assessment: - Patient Problems (1) Pulmonary embolism Current Visit: Yes Status: Acute Code(s): I26.99 - OTHER PULMONARY EMBOLISM WITHOUT ACUTE COR PULMONALE SNOMED Code(s): 95204218 Comment: Likely due to cancer-related coagulopathy. Start IV heparin as will need a bx soon. After bx can convert to enoxaparin. (2) Weight loss Current Visit: Yes Status: Acute Comment: Anorexia and weight loss due to her presumed malignancy. Nutrition consult requested. (3) Lung mass Current Visit: Yes Status: Acute Code(s): R91.8 - OTHER NONSPECIFIC ABNORMAL FINDING OF LUNG FIELD SNOMED Code(s): 072932222 Comment: Eroding into to vertebral bodies and a neural foramina. Dr. Hurt to consult.
[2017-11-04] MEDS ORDERED: Heparin DRIP 25,000 UNITS(*) 25,000 UNITS/500 ML BAG ONE (19:01)
[2017-11-04] MEDS ORDERED: Heparin VIAL(*) 5000 UNITS/ML VIAL (FIVE THOUSAND) ONE (19:01)
[2017-11-04] MEDS ORDERED: Heparin VIAL(*) 5000 UNITS/ML VIAL (FIVE THOUSAND) IV ONE (19:06)
[2017-11-04] MEDS: Heparin DRIP 25,000 UNITS(*) 25,000 UNITS/500 ML BAG IV SCH (19:06)
[2017-11-04 21:20] LABS: Hematocrit 31 % (35-47); Hemoglobin 9.9 g/dl (12.0-16.0); Mean Corpuscular HGB Conc 32 g/dl (31-36); Mean Corpuscular Hemoglobin 26 pg (27-31); Mean Corpuscular Volume 81 fL (80-97); Mean Platelet Volume 7.6 um3 (7.4-10.4); Platelet Count 302 10^3/ul (150-450); Red Blood Count 3.86 10^6/ul (4.0-5.4); Red Cell Distribution Width 16 % (10.5-15); White Blood Count 19.1 10^3/ul (3.5-10.8)
[2017-11-04 21:35] LABS: EGFR Non-African American 78.8 (>60)
[2017-11-04 21:56] LABS: ABS Basophils 0.1 10^3/ul (0-0.2); ABS Eosinophils 0.1 10^3/ul (0-0.6); ABS Lymphocytes 0.9 10^3/ul (1.0-4.8); ABS Monocytes 1.6 10^3/ul (0-0.8); ABS Neutrophils 16.4 10^3/ul (1.5-7.7); ABS Nucleated RBC 0 10^3/ul; Eosinophil % 0.7 % (0-6); Lymphocyte % 4.5 % (25-47); Nucleated Red Blood Cells % 0
--- NOTE | 2017-11-04 23:52 | ED ---
Andrew Martínez Tecjoon, scribed for Carolyn Lunsford MD on 11/04/17 at 1615 . Shortness of Breath - HPI Summary HPI Summary: This patient is a 82 year old female with hx breast CA presenting to [facility] accompanied by her sister with a chief complaint of right leg pain since her right hip surgery at 05/19/17 and SOB for approx. 1 month ago. Patient states that when she first wakes up, she needs to catch her breath. She has not suffered a fall or injury to hip since the surgery. Patient states that her back tends to hurt when lying prone for long periods of time and she currently finds it difficult whether her pain radiates from her hip or her back. Patient states that since her right hip replacement and her mastectomy, she has lost weight, more than 25 lbs in 3-5 months, but she has difficulty quantitating the time frame. The pain is rated 5/10 in severity. Symptoms aggravated by ambulation. Symptoms alleviated by lying down. Patient additionally reports back pain. Her SOB is acute and chronic. Pt was on Eliquis post surgically, but not presently, and is unsure when she completed her RX for it. Pt is a vague historian. She denies chest pain, fever, cough, hemoptysis. - History of Current Complaint Chief Complaint: EDShortnessOfBreath Time Seen by Provider: 11/04/17 15:55 Hx Obtained From: Patient, Family/Accountant Machine Processing - sister Onset/Duration: Gradual Onset, Still Present Timing: Constant Current Severity: Moderate Dyspnea At: Rest Aggrevating Factors: Nothing Alleviating Factors: Nothing Associated Signs & Symptoms: Negative - Allergy/Home Medications Allergies/Adverse Reactions: Allergies Allergy/AdvReac Type Severity Reaction Status Date / Time lisinopril Allergy Coughing Verified 11/04/17 15:27 Home Medications: Home Medications Acetaminophen TAB* [Tylenol TAB*] 650 mg PO Q6H PRN 11/04/17 [History Confirmed 11/04/17] PMH/Surg Hx/FS Hx/Imm Hx Previously Healthy: No Endocrine/Hematology History: Denies: Hx Anticoagulant Therapy, Hx Diabetes Cardiovascular History: Reports: Other Cardiovascular Problems/Disorders - R BBB Denies: Hx Hypertension Musculoskeletal History: Reports: Hx Scoliosis Sensory History: Reports: Hx Cataracts Denies: Hx Contacts or Glasses, Hx Hearing Aid Opthamlomology History: Reports: Hx Cataracts Denies: Hx Contacts or Glasses - Cancer History Cancer Type, Location and Year: R breast cancer ~2002 Hx Chemotherapy: Yes - Surgical History Surgery Procedure, Year, and Place: RIGHT MASTECTOMY. APPENDECTOMY- A TEEN Hx Anesthesia Reactions: No Infectious Disease History: No Infectious Disease History: Denies: Traveled Outside the [place] in Last 30 Days - Family History Known Family History: Positive: Hypertension - Social History Lives: With Family Alcohol Use: None Hx Substance Use: No Substance Use Type: Reports: None Hx Tobacco Use: No Smoking Status (MU): Former Smoker Review of Systems Negative: Fever Cardiovascular: Negative Positive: Shortness Of Breath Gastrointestinal: Negative Positive: Other - hip pain, back pain, right leg pain Neurological: Negative Psychological: Normal All Other Systems Reviewed And Are Negative: Yes Physical Exam - Summary Physical Exam Summary: Appearance:chronically ill-appearing, moderate pain distress, thin, COPD habitus , speaks full sentences Skin: Warm, color reflects adequate perfusion Head: Normal Head/Face inspection Eyes: Conjunctiva clear ENT: Normal inspection Neck: Supple, no nodes, no JVD. Respiratory: Scattered rhonchi; no respiratory distress, but O2 stat is noted to be 86% on room air. Cardio: RRR, No murmur, pulses normal, brisk capillary refill Abdomen: soft, nontender Bowel sounds: present Musculoskeletal: Strength Intact/ ROM intact. +calf tenderness on right. No edema. Right hip pain on palpation, no deformity, no foreshortening. Surgical scar well healed. Psychological: Normal Neuro: Alert, muscle tone normal, no focal deficit Triage Information Reviewed: Yes Vital Signs On Initial Exam: Initial Vitals Temp Pulse Resp BP Pulse Ox 97.2 F 110 16 126/72 93 11/04/17 13:49 11/04/17 13:49 11/04/17 13:49 11/04/17 13:49 11/04/17 13:49 Vital Signs Reviewed: Yes Diagnostics - Vital Signs Vital Signs Temp Pulse Resp BP Pulse Ox 11/04/17 13:49 97.2 F 110 16 126/72 93 - Laboratory Result Diagrams: 11/07/17 05:37 11/07/17 05:37 Lab Statement: Any lab studies that have been ordered have been reviewed, and results considered in the medical decision making process. - Radiology CXR Xray Interpretation: Positive (See Comments) - CXR reveals, per radiologist, IMPRESSION: RIGHT LUNG INTERSTITIAL INFILTRATE. ED physician has reviewed this radiology report. Radiology Interpretation Completed By: Radiologist - CT CT Abd/Pel CT Interpretation: Positive (See Comments) - CT Abd/Pel reveals, per radiologist , IMPRESSION: 1. MULTIPLE PULMONARY EMBOLI. 2. LARGE RIGHT UPPER LOBE PLEURAL- BASED MASS MOST CONSISTENT WITH A PRIMARY LUNG CARCINOMA. THERE IS EROSION INTO THE T4 AND T5 VERTEBRAL BODIES AND MILD EPIDURAL EXTENSION AT THE T4 LEVEL AND EXTENSION INTO THE ADJACENT NEURAL FORAMEN. 3. ADDITIONAL SMALL PULMONARY NODULES MOST CONSISTENT WITH METASTATIC DISEASE. 4. LARGE CONFLUENT MEDIASTINAL AND RIGHT HILAR MASS CONSISTENT WITH METASTATIC ADENOPATHY SURROUNDING AND NARROWING THE RIGHT MAINSTEM BRONCHUS. 5. MODERATE TO SEVERE CENTRILOBULAR EMPHYSEMATOUS CHANGE. ED physician has reviewed this radiology report. CT Interpretation Completed By: Radiologist - EKG 1640 Cardiac Rate: Tachycardia EKG Rhythm: Sinus Tachycardia - [address] Segment: Non-Specific Ectopy: None EKG Interpretation: normal AVCT, RBBB, normal QTc, axis (-22) EKG Comparison: No Significant Change - compared to 05/17/2017 - Additional Comments Diagnostic Additional Comments: Venous Doppler Study reveals, per radiologist, IMPRESSION: EXTENSIVE DEEP VENOUS THROMBUS PRESENT WITHIN THE COMMON FEMORAL, FEMORAL, POPLITEAL AND POSTERIOR TIBIAL VEINS. ED physician has reviewed this radiology report. Re-Evaluation - Re-Evaluation First Eval Re-Evaluation Time: 18:22 Change: Improved Comment: Patient is feeling better. She was notified of her admission and diagnosis. Course/Dx - Course Course Of Treatment: This patient is a 82 year old female with hx breast CA presenting to [facility] accompanied by her sister with a chief complaint of right leg pain, since her right hip surgery at 05/19/17 and SOB and weight loss for approx. 1 month ago. She has not suffered a fall or injury to hip since the surgery. An EKG, taken 1640, reveals Tachy (111 BPM), normal AVCT, RBBB, normal QTc, axis (-22), no change compared to 05/17/2017. Venous Doppler Study is pos for DVT right leg, CXR with infiltrate, CTA chest with lung mass and pulmonary emboli. Patients white blood cell count is elevated and she has an interstitial infiltrate in her CXR, so sepsis protocol for IV fluids and IV antibiotics was initiated. Bloodwork Obtained. Urinalysis Obtained. Lab called with critical value with a pO2 of 49 at 1649. Patient also has a troponin level of 0.06. In the ED course the patient was given Zithromax, Rocephin, IV fluids. I discussed patient care with Dr. Roberto (Hospitalist) at 1810 and she agreed to admit the patient. Patient will be admitted with a dx of pulmonary emboli, lung mass, hilar lymphadenopathy, right leg DVT. Dr. Estevez will initiate anticoagulation with heparin that can be readily reversed for lung bx, metastatic vs new primary. The patient is agreeable with this plan. - Diagnoses Provider Diagnoses: DVT (deep venous thrombosis), Pulmonary emboli, Lung mass, Weight loss, Mediastinal adenopathy, Hypoxia - Physician Notifications Discussed Care of Patient With: Yuko Roberto - Hospitalist Time Discussed With Above Provider: 18:10 - Discussed patient care with Dr. Roberto (Hospitalist) at 1810 and she agreed to admit the patient. Instructed by Provider To: Admit As Inpatient - Critical Care Time Critical Care Time: 30-74 min - 30 mins Discharge - Sign-Out/Discharge Documenting (check all that apply): Discharge/Admit/Transfer - Discharge Plan Condition: Stable Disposition: ADMITTED TO [facility] - Billing Disposition and Condition Condition: STABLE Disposition: [facility] [place] The documentation as recorded by the Andrew melgoza Tecjoon accurately reflects the service I personally performed and the decisions made by , Carolyn Lunsford MD.
[2017-11-05] MEDS: Heparin VIAL(*) 5000 UNITS/ML VIAL (FIVE THOUSAND) IV PRN (07:29)
[2017-11-05 09:49] LABS: Urine Appearance Clear; Urine Blood Negative (Negative); Urine Color Yellow; Urine Ketones Negative (Negative); Urine Protein Negative (Negative); Urine Specific Gravity 1.043 (1.010-1.030); Urine Urobilinogen Negative (Negative)
--- NOTE | 2017-11-05 10:53 | PN ---
Subjective Date of Service: 11/05/17 Interval History: No subj change. No pain. ? less SOB. No cough. Still poor appetite. Family History: Findings - Both of her daughters had breast cancer. Social History: Findings - Quit smoking 15+ yrs ago. No alcohol use. SDM is daughter Amairani Winters [phone] ([place]) Past Medical History: Findings - R mastectomy for breast cancer 2002 [place], [place], triple-negative, had chemo and a port. BL cataract sx, appy 195, 5 children, fx L clavicle, R hip ORIF for fx 05/2017. Objective Active Medications: Heparin Sodium (Porcine) (Heparin Vial(*)) 0 units IV .BOLUS PRN PRN Reason: PER HEPARIN DRIP PROTOCOLS Last Admin: 11/05/17 07:29 Dose: 1,950 units Heparin Sodium/Dextrose (Heparin Drip 25,000 Units(*)) 25,000 units in 500 mls @ 0 mls/hr IV PER RATE WENDY; Per Protocol PRN Reason: Protocol Last Admin: 11/04/17 19:06 Dose: 19 mls/hr Vital Signs - 8 hr 11/05/17 11/05/17 11/05/17 03:45 07:41 08:00 Temperature 98.9 F 98.9 F Pulse Rate 106 108 Respiratory 20 28 20 Rate Blood Pressure 129/72 121/66 (mmHg) O2 Sat by Pulse 95 94 Oximetry 11/05/17 08:39 Temperature Pulse Rate Respiratory 20 Rate Blood Pressure (mmHg) O2 Sat by Pulse Oximetry Oxygen Devices in Use Now: Nasal Cannula Appearance: Alert, partly up in bed. In good spirits. Looks comfortable. Eyes: No Scleral Icterus Respiratory: Symmetrical Chest Expansion and Respiratory Effort, Clear to Auscultation, Clear to Percussion Cardiovascular: NL Sounds; No Murmurs; No JVD, RRR, No Edema, - Extremities: No Edema, No Clubbing, Cyanosis, - Skin: No Rash or Ulcers, No Nodules or Sclerosis, - Neurological: Alert and Oriented x 3, NL Sensation Result Diagrams: 11/04/17 21:11 11/04/17 21:11 Microbiology and Other Data: Microbiology 11/04/17 16:51 Influenza Types A,B Antigen (ODETTE) - Final Nasal Specimen received for Influenza A/B Molecular testing Assess/Plan/Problems-Billing Assessment: - Patient Problems (1) Pulmonary embolism Current Visit: Yes Status: Acute Code(s): I26.99 - OTHER PULMONARY EMBOLISM WITHOUT ACUTE COR PULMONALE SNOMED Code(s): 56898033 Comment: Likely due to cancer-related coagulopathy. Start IV heparin as will need a bx soon. After bx can convert to enoxaparin. (2) Weight loss Current Visit: Yes Status: Acute Comment: Anorexia and weight loss due to her presumed malignancy. Nutrition consult requested. (3) Lung mass Current Visit: Yes Status: Acute Code(s): R91.8 - OTHER NONSPECIFIC ABNORMAL FINDING OF LUNG FIELD SNOMED Code(s): 784125664 Comment: Eroding into two vertebral bodies and a neural foramina. Dr. Hurt to consult.
[2017-11-05] MEDS ORDERED: Iohexol 300* (CONTRAST) 10 ML SDV IV ONE (14:01)
[2017-11-05] MEDS: D5W 1/2 NS KCl 20 Meq 1000 ML* 1,000 ML IV SCH (14:45)
[2017-11-05] MEDS: Heparin DRIP 25,000 UNITS(*) 25,000 UNITS/500 ML BAG IV SCH (19:51)
--- NOTE | 2017-11-05 22:57 | CONS ---
MEDICAL ONCOLOGY CONSULTATION NOTE: DATE OF CONSULT: 11/05/17 REASON FOR CONSULT: Lung mass and likely lung carcinoma. HISTORY OF PRESENT ILLNESS: Jeanine Fox is an 82-year-old female who reports that she had a hip fracture last 05/19/17. This was repaired by Dr. Oliver with [facility]. She then was hospitalized on rehab and then home with physical therapy and doing well by mid June, no longer walking with a cane. Prior to the hip surgery, weight was 140 pounds, it had dropped to 120 pounds about 3 months ago and currently is down to 109 pounds. Her daughter reports that her appetite has been much decreased. Her sister has been living with her since her hip surgery , but she is still functioning essentially independently. She has had no nausea or vomiting until the last couple of weeks and has had 3 episodes during that period of time. She has had no difficulty swallowing, but does note some early satiety. She first noted some shortness of breath, especially early in the morning about 2 weeks ago and her breathing has gotten somewhat worse over the last couple of weeks. She also has noted some discomfort in her right leg. She has not had any acute change in symptoms over the last few days, but has noticed increasing weight loss, weakness and shortness of breath, and her family decided that she should be seen in the emergency room as she has no current primary care physician. She has been coughing up a yellow sputum, which has been slightly productive, has not, however, had any associated fevers, sweats or chills. PAST MEDICAL HISTORY: Significant for: 1. Hip fracture, May 2017. 2. Status post appendectomy in 1950. 3. Left clavicle fracture. 4. Spontaneous pneumothorax on the left in 2004. The patient is status post a right mastectomy for breast cancer in 2002, done in [place], [place]. This was a triple negative breast cancer. The patient received chemotherapy. She is unsure as to the drugs. Tumor was lymph node negative and she does not believe . She had noticed a lump herself at age 67. She reports receiving weekly chemotherapy for 5 months. MEDICATIONS: At the time of admission, included only p.r.n. Tylenol. ALLERGIES: Reportedly to LISINOPRIL, but she does not remember being hypertensive in the past, although her daughter does report she may have had a history of hypertension, which is no longer present. FAMILY HISTORY: Daughter with breast cancer in the mid 30s, in 2006, and is on hormone therapy. Other daughter with breast cancer at age 53, hormone receptor positive. This was in 2010. Both daughters are doing well and both have reportedly had BRCA testing, both of these were before 2013. Father at 85, mother at 87. No other family history of malignancy. SOCIAL HISTORY: The patient is a retired physical education and student teacher retiring at age 60. She is . Cigarettes: A half pack per day for 50 years, quitting 15 years ago. No significant alcohol use. Surrogate decision maker is her daughter, Amairani Castellanos. She has a sister who has been living with her since the time of her hip surgery. REVIEW OF SYSTEMS: Fatigue, weight loss, cough, shortness of breath, early satiety as noted above. Review of systems otherwise negative including neurologic, cardiopulmonary, pulmonary, GI, and musculoskeletal. PHYSICAL EXAM: An 82-year-old female in no acute distress. Vital Signs: Blood pressure is 133/78, pulse 110, currently afebrile. T-max since admission of 98.9. HEENT: PERRL. EOMI. No erythema or exudate. No palpable cervical, supraclavicular or axillary adenopathy. Lungs: Clear except for a few rhonchi at the right base. Heart: A 2/6 systolic ejection murmur without any rubs or gallops. Abdomen: Soft and nontender without masses or organomegaly. Extremities: No clubbing, cyanosis or edema. Right leg is slightly larger than the left, but no pitting edema. Neurologic exam: The patient is alert and oriented x3. Motor is 5/5 throughout. Cranial nerves III through XII are intact. DIAGNOSTIC STUDIES/LAB DATA: White count 11,100, H and H of 31/9.9, and was 9.6 postop and 12.8 preop for her hip surgery. Platelet count of 302,000 with an essentially normal differential. Chemistry Studies: Sodium 137, potassium 4.1, chloride 101, bicarb 27, BUN 29, creatinine 0.71, glucose 105. Normal LFTs. CRP is markedly elevated at 120. CT scan revealed significant abnormalities with multiple pulmonary emboli being present. There is a large right upper lobe mass most consistent with a lung primary measuring 6 cm, eroding at the T4 and T5 vertebral bodies with extension to the adjacent neural foramen without any narrowing of the spinal canal. There are multiple small pulmonary nodules which are noncalcified, measuring up to 6 mm. There is significant adenopathy in the mediastinal region including the right paratracheal, pretracheal and subcarinal regions. The mediastinal and hilar adenopathy abuts the anterior and right lateral aspect of the trachea and the right mainstem bronchus which does appear to be narrowed. Emphysematous changes are noted. The CT scan extends to the upper abdomen and the left adrenal and a portion of the liver appear unremarkable, but the remainder of the adrenals and liver are not evaluated at this time. Doppler study of the right leg reveals multiple thromboses. Extensive in the common femoral, femoral popliteal and posterior tibial veins. IMPRESSION: 1. An 82-year-old female, former smoker, who now has a very large lung mass with significant adenopathy, likely an erosion into the T4 and T5 vertebral bodies, fortunately without any neurologic changes on exam or any significant pain. In addition, the right mainstem bronchus appears narrowed and there is significant adenopathy present. It was discussed with the patient and her daughter, this almost certainly represents a bronchogenic carcinoma. Sputum cytologies will be attempted to be obtained. If sputum cytologies are negative , she will require a more definitive diagnostic test. This would appear most amenable to bronchoscopy and potentially EBUS. I have asked Dr. Prieto to be consulted. In regards to the abnormalities seen at T4 and T5, I have asked for an MRI scan to better evaluate to make sure there is no compromise at that level which could affect her neurologically. In addition, I have asked for a CT scan of the abdomen and pelvis to look for distant metastatic disease. Once the above studies have been obtained, further recommendations will be made to the patient and daughter. 2. Multiple pulmonary emboli with deep venous thrombosis. The patient has already been started on heparin which would seem to be the most logical choice at this time. It will need to be stopped in order for her to have her bronchoscopy. Once the pathology is available, it would make more sense for the patient to be on Lovenox, given likely underlying malignancy causing the thromboses. 3. History of breast cancer. She has had herself a triple negative breast cancer and both of her daughters have had breast cancer at early ages in their 30s and at 53, although both of her daughters tested negative for BRCA. These were both a year or before. Next generation sequencing was available, which seemed to be reasonable for her one of her daughters, most likely the one who is in her 30s to have a broader testing performed such as a breast cancer panel from [employer] or the myRisk panel from [employer]. [id number]/[facility] #: [id number] KATIE
[2017-11-06 05:33] LABS: Hematocrit 27 % (35-47); Hemoglobin 8.9 g/dl (12.0-16.0); Mean Corpuscular HGB Conc 33 g/dl (31-36); Mean Corpuscular Hemoglobin 26 pg (27-31); Mean Corpuscular Volume 79 fL (80-97); Mean Platelet Volume 7.7 um3 (7.4-10.4); Platelet Count 324 10^3/ul (150-450); Red Blood Count 3.44 10^6/ul (4.0-5.4); Red Cell Distribution Width 15 % (10.5-15); White Blood Count 16.5 10^3/ul (3.5-10.8)
[2017-11-06 05:37] LABS: ABS Basophils 0 10^3/ul (0-0.2); ABS Eosinophils 0.3 10^3/ul (0-0.6); ABS Lymphocytes 0.8 10^3/ul (1.0-4.8); ABS Monocytes 2.2 10^3/ul (0-0.8); ABS Neutrophils 13.2 10^3/ul (1.5-7.7); ABS Nucleated RBC 0 10^3/ul; Eosinophil % 1.6 % (0-6); Nucleated Red Blood Cells % 0
[2017-11-06] MEDS ORDERED: Iohexol 300* (CONTRAST) 10 ML SDV IV ONE (09:52)
[2017-11-06 11:29] LABS: EGFR Non-African American 115.5 (>60)
[2017-11-06] MEDS: D5W 1/2 NS KCl 20 Meq 1000 ML* 1,000 ML IV SCH (13:47)
[2017-11-06 13:48] LABS: EGFR Non-African American 110.4 (>60)
[2017-11-06] MEDS ORDERED: Gadoteridol* (CONTRAST) 279.3 MG/ML 10 ML IV ONE (20:03)
--- NOTE | 2017-11-06 20:55 | PN ---
Progress Note - Progress Note Date of Service: 11/06/17 SOAP: Subjective: [82 yo female with h/o triple neg BCA admitted with bilateral PEs and incidental finding of a large lung mass. Patient is requiring 4L supp O2, no dyspnea at rest, but mild dyspnea with light activity. No chest or back pain. Evidence of tumor invasion to the thoracic spine on CT. No c/o numbness, tingling or weakness in any extremities. 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 She otherwise states she is comfortable. She has occasionally vomited while eating over the last couple of months. No dysphagia, abd pain or nausea. Significant weight loss noted. Poor appetite. She is on a heparin drip for PEs.] Objective: [ Gadoteridol (Prohance* (Contrast)) 9 ml IV ONCE ONE Stop: 11/06/17 20:04 Last Admin: 11/06/17 20:26 Dose: 9 ml Heparin Sodium (Porcine) (Heparin Vial(*)) 0 units IV .BOLUS PRN PRN Reason: PER HEPARIN DRIP PROTOCOLS Last Admin: 11/05/17 07:29 Dose: 1,950 units Heparin Sodium/Dextrose (Heparin Drip 25,000 Units(*)) 25,000 units in 500 mls @ 0 mls/hr IV PER RATE WENDY; Per Protocol PRN Reason: Protocol Last Admin: 11/05/17 19:51 Dose: 21 mls/hr Potassium Chloride/Dextrose (D5w 1/2 Ns Kcl 20 Meq 1000 Ml*) 1,000 mls @ 100 mls/hr IV PER RATE WENDY Last Admin: 11/06/17 13:47 Dose: 100 mls/hr Laboratory Results - last 24 hr 11/06/17 11/06/17 11/06/17 05:09 05:09 05:09 WBC 16.5 H RBC 3.44 L Hgb 8.9 L Hct 27 L MCV 79 L MCH 26 L MCHC 33 RDW 15 Plt Count 324 MPV 7.7 Neut % (Auto) 80.0 Lymph % (Auto) 5.0 L [place] % (Auto) 13.2 H Eos % (Auto) 1.6 Baso % (Auto) 0.2 Absolute Neuts (auto) 13.2 H Absolute Lymphs (auto) 0.8 L Absolute Monos (auto) 2.2 H Absolute Eos (auto) 0.3 Absolute Basos (auto) 0 Absolute Nucleated RBC 0 Nucleated RBC % 0 APTT 50.0 H Sodium 132 L Potassium 3.9 Chloride 99 L Carbon Dioxide 24 Anion Gap 9 BUN 12 Creatinine 0.53 Est GFR ( Amer) 142.0 Est GFR (Non-Af Amer) 110.4 BUN/Creatinine Ratio 22.6 H Glucose 114 H Calcium 9.2 11/06/17 11:03 WBC RBC Hgb Hct MCV MCH MCHC RDW Plt Count MPV Neut % (Auto) Lymph % (Auto) [place] % (Auto) Eos % (Auto) Baso % (Auto) Absolute Neuts (auto) Absolute Lymphs (auto) Absolute Monos (auto) Absolute Eos (auto) Absolute Basos (auto) Absolute Nucleated RBC Nucleated RBC % APTT Sodium 131 L Potassium 4.1 Chloride 98 L Carbon Dioxide 26 Anion Gap 7 BUN 9 Creatinine 0.51 Est GFR ( Amer) 148.5 Est GFR (Non-Af Amer) 115.5 BUN/Creatinine Ratio 17.6 Glucose 126 H Calcium 9.2 Vital Signs: Temp Pulse Resp BP Pulse Ox 98.0 F 110 18 147/60 95 11/06/17 12:20 11/06/17 12:20 11/06/17 12:20 11/06/17 12:20 11/06/17 12:20 Exam: Gen: Extremely pleasant 82 yo female in NAD, accompanied by her daughter HEENT: MMM Neck: supple, no LAD CV: RRR Resp: few crackles appreciated Ext: No edema Skin: No rash ] Assessment: [82 yo female with h/o triple negative BCA admitted with new invasive lung mass and bilateral PEs.] Plan: [1. PEs - hypoxic, requiring 4L supp O2 - cont heparin drip - can transition to Lovenox following bronchoscopy - not a tPA candidate 2. Lung mass - sputum serology ordered, but patient unable to produce sufficient sample - requested consultation from Dr Prieto to consider EBUS - tumor invasion noted to thoracic spine on CT - MRI pending to eval for cord compression, but patient has no back pain or neurologic symptoms - pending CT A/P to complete staging, but will need to be delayed in favor of contrast MRI ]
--- NOTE | 2017-11-06 21:29 | CONS ---
PULMONARY CONSULTATION REPORT: DATE OF CONSULT: 11/06/17 CONSULTATION REQUESTED BY: Dr. Hurt. REASON FOR CONSULT: Evaluation of lung mass. HISTORY OF PRESENT ILLNESS: The patient is an 82-year-old female with hip fracture in May 2017, repaired by Dr. Oliver, was in rehab, then was transitioned to home with physical therapy. The patient presents for evaluation of worsening shortness of breath over the past 3 weeks and discomfort in right lower extremity. The patient also reports significant weight loss of about 140 pounds in the past 3 months. The patient also reports poor appetite. Her sister has been living with her since her hip surgery, but however, the patient is still functional independently with her activities. The patient reports recent onset of nausea and vomiting in the past 3 weeks. The patient also reports worsening dyspnea on exertion in the past 2 to 3 weeks and significantly worsened in the past few days. The patient had further evaluation in the emergency room, which included chest x- ray and CTA of the chest. I have personally reviewed CTA of the chest. The patient noted to have a large right-sided lung mass located medially, measuring 5 x 6 cm, eroding into T4-T5 vertebrae and also with epidural extension. The patient also with a mass extending into the area of right paratracheal lymph node, which could not be from the mass. It was confluent with mediastinal nodes on the right side. Mass was also seen to be abutting the trachea, right mainstem bronchus and was also very close to the esophagus. The patient also with significant emphysematous changes bilaterally, multiple filling defects and pulmonary emboli. The patient had reported mild cough until recently, has not been able to expectorate any phlegm recently. PAST MEDICAL HISTORY: 1. Hip fracture. 2. Appendectomy in 195. 3. Left clavicular fracture. 4. Spontaneous pneumothorax on the left in 2004. 5. The patient also with breast cancer diagnosed in 2002, status post right mastectomy, triple negative breast cancer, received chemotherapy. MEDICATIONS: Tylenol p.r.n. ALLERGIES: LISINOPRIL. FAMILY HISTORY: Daughter with breast cancer, on hormonal therapy. Other daughter also with breast cancer at age 53. Father at 85, mother at 87. SOCIAL HISTORY: Retired physical education ichthyology teacher. Former smoker, smoked half a pack a day for 50 years, quitting 15 years ago. REVIEW OF SYSTEMS: All 14 systems reviewed and as per HPI. PHYSICAL EXAM: The patient is in bed, in no apparent distress. Vital Signs: Temperature 98, pulse 110 beats per minute, respiratory rate 18 per minute, O2 sat 95% on 4 L, blood pressure 147/60. HEENT: Pupils equal, reactive to light. Mucous membranes moist. Lungs: Clear. No rhonchi or wheeze. Cardiovascular: S1, S2 present. Systolic murmur. Abdomen: Soft, nontender, nondistended. Bowel sounds present. Extremities: No clubbing or cyanosis. Right leg is slightly larger than the left with no pitting edema. Neurologic: Alert, awake, oriented x3. Cranial nerves intact. DIAGNOSTIC STUDIES/LAB DATA: WBC count 16.5, hemoglobin 8.9, hematocrit 27, platelet count 324,000. ABG; 7.44, pCO2 OF 38, pO2 OF 49, O2 sat 91%, bicarb 26. Sodium 131, potassium 4.1, chloride 98, bicarb 26, BUN 9, creatinine 0.51. Troponin 0.06. Influenza A and B negative. Chest x-ray; CTA of the chest as described above in HPI. IMPRESSION AND RECOMMENDATIONS: 82-year-old female, former smoker with significant smoking history, with recent onset of shortness of breath, cough, extremity pain, noted to have bilateral pulmonary embolism, large lung mass, significant emphysematous changes, involvement of T4 vertebra. Lung mass highly concerning for malignancy. The patient does not have palpable lymph nodes that could be biopsied less invasively. She does not have any other area that could be reached easily. Given the lung mass in central location, she will need to have bronchoscopy/EBUS. Procedure was discussed in detail with the patient. Procedure was scheduled for Monday. NPO after midnight Complications of procedure were thoroughly explained. Need for general anesthesia and risks associated with general anesthesia were also discussed in detail with the patient. She has multiple pulmonary emboli and deep venous thrombosis, on heparin drip. Will continue with heparin drip until biopsy can be performed. Will need to hold heparin 6 hours prior to the procedure. The patient otherwise is hemodynamically stable. Needing O2 supplementation, at 3-4L/min. Thank you for allowing me to participate in the care of your patient. Will follow up with you. [id number]/[facility] #: [id number] KATIE
[2017-11-06] MEDS: Heparin VIAL(*) 5000 UNITS/ML VIAL (FIVE THOUSAND) IV PRN (23:23)
[2017-11-06] MEDS: Heparin DRIP 25,000 UNITS(*) 25,000 UNITS/500 ML BAG IV SCH (23:26)
[2017-11-07] MEDS: D5W 1/2 NS KCl 20 Meq 1000 ML* 1,000 ML IV SCH ×3 (01:06→20:59)
[2017-11-07 05:45] LABS: Hematocrit 28 % (35-47); Hemoglobin 9.2 g/dl (12.0-16.0); Mean Corpuscular HGB Conc 33 g/dl (31-36); Mean Corpuscular Hemoglobin 26 pg (27-31); Mean Corpuscular Volume 79 fL (80-97); Mean Platelet Volume 7.5 um3 (7.4-10.4); Platelet Count 371 10^3/ul (150-450); Red Blood Count 3.52 10^6/ul (4.0-5.4); Red Cell Distribution Width 15 % (10.5-15); White Blood Count 15.2 10^3/ul (3.5-10.8)
[2017-11-07 05:46] LABS: ABS Basophils 0.1 10^3/ul (0-0.2); ABS Eosinophils 0.2 10^3/ul (0-0.6); ABS Lymphocytes 0.9 10^3/ul (1.0-4.8); ABS Monocytes 1.9 10^3/ul (0-0.8); ABS Neutrophils 12.2 10^3/ul (1.5-7.7); ABS Nucleated RBC 0 10^3/ul; Eosinophil % 1.4 % (0-6); Lymphocyte % 5.6 % (25-47); Nucleated Red Blood Cells % 0
[2017-11-07 06:01] LABS: EGFR Non-African American 123.8 (>60)
--- NOTE | 2017-11-07 09:42 | RAD ---
INDICATION: Mass T4 region with likely bony erosion. COMPARISON: Comparison is made with a prior CT angiogram of the chest from November 04, 2017. TECHNIQUE: Axial and sagittal T1 and T2-weighted images of the dorsal spine were obtained. In addition, axial and sagittal T1-weighted images were obtained following intravenous injection of 9 ml of ProHance nonionic contrast enhancement. FINDINGS: There is a large pleural-based mass present in the posterior medial aspect of the right upper lobe measuring 6.5 x 5.5 x 8.4 cm in size. This has a central area of decreased density on the postcontrast enhanced images consistent with necrosis. The mass appears to erode into the lateral aspects of the T3, T4 and T5 vertebral bodies with involvement of the pedicles and adjacent right posterior ribs. In addition there is extension into the T2-T3, T3-T4 and T4-T5 neural foramen and mild epidural extension into the spinal canal at the T4 level. No spinal cord impingement is seen. The spinal cord is normal in signal intensity. This correlates with the findings on the prior CT angiogram of the chest. There is a moderate to severe dorsal scoliosis convex toward the right side. There is a mild chronic compression fracture of the superior endplate of the L1 vertebral body. No other fractures are seen. There is no evidence for significant disc bulge or herniation. There is a small right pleural effusion and right lower lobe infiltrate. IMPRESSION: THERE IS A LARGE PLEURAL-BASED MASS PRESENT IN THE RIGHT UPPER LOBE WHICH ERODES INTO THE T3-T5 VERTEBRA WITH MILD EPIDURAL EXTENSION AT THE T4 LEVEL WITHOUT SPINAL CORD IMPINGEMENT.
--- NOTE | 2017-11-07 16:19 | PN ---
Progress Note - Progress Note Date of Service: 11/07/17 - Pulm f/u note Note: Pt seen and examined at bedside. No new complaints. Family at bedside. Had MRI night before Active Medications Generic Name Dose Route Start Last Admin Trade Name Grazyna PRN Reason Stop Dose Admin Heparin Sodium (Porcine) 0 units 11/04/17 21:10 11/06/17 23:23 Heparin Vial(*) IV 3,900 units .BOLUS PRN Administration PER HEPARIN DRIP PROTOCOLS Heparin Sodium/Dextrose 25,000 units in 500 mls @ 0 mls/hr 11/04/17 18:45 01/17 23:26 Heparin Drip 25,000 Units(*) IV 25 mls/hr PER RATE WENDY Administration Protocol Per Protocol Potassium Chloride/Dextrose 1,000 mls @ 100 mls/hr 11/05/17 15:00 11/07/17 09 :59 D5w 1/2 Ns Kcl 20 Meq 1000 Ml* IV 100 mls/hr PER RATE WENDY Administration Vital Signs Temp Pulse Resp BP Pulse Ox 97.6 F 111 16 136/82 98 11/07/17 15:25 11/07/17 15:25 11/07/17 15:25 11/07/17 15:25 11/07/17 15:25 O/E: Pt in NAD, alert, awake, oriented x3 HEENT: PERRLA, No JVD, mucus membrane moist Lungs: Diminished air entry b/l, no wheeze CVS: S1, S2+, regular Abd: Soft, BS+, NT Ext: No edema Skin: No rash or bruise Laboratory Results - last 24 hr 11/06/17 11/07/17 11/07/17 21:13 05:37 05:37 WBC 15.2 H RBC 3.52 L Hgb 9.2 L Hct 28 L MCV 79 L MCH 26 L MCHC 33 RDW 15 Plt Count 371 MPV 7.5 Neut % (Auto) 80.1 Lymph % (Auto) 5.6 L [place] % (Auto) 12.2 H Eos % (Auto) 1.4 Baso % (Auto) 0.7 Absolute Neuts (auto) 12.2 H Absolute Lymphs (auto) 0.9 L Absolute Monos (auto) 1.9 H Absolute Eos (auto) 0.2 Absolute Basos (auto) 0.1 Absolute Nucleated RBC 0 Nucleated RBC % 0 APTT 25.6 L Sodium 133 L Potassium 4.1 Chloride 102 Carbon Dioxide 26 Anion Gap 5 BUN 7 Creatinine 0.48 L Est GFR ( Amer) 159.2 Est GFR (Non-Af Amer) 123.8 BUN/Creatinine Ratio 14.6 Glucose 123 H Calcium 9.4 Total Bilirubin 0.20 AST 11 L ALT 5 L Alkaline Phosphatase 59 Total Protein 5.7 L Albumin 2.7 L Globulin 3.0 Albumin/Globulin Ratio 0.9 L 11/07/17 11/07/17 05:37 12:20 WBC RBC Hgb Hct MCV MCH MCHC RDW Plt Count MPV Neut % (Auto) Lymph % (Auto) [place] % (Auto) Eos % (Auto) Baso % (Auto) Absolute Neuts (auto) Absolute Lymphs (auto) Absolute Monos (auto) Absolute Eos (auto) Absolute Basos (auto) Absolute Nucleated RBC Nucleated RBC % APTT 85.0 H 70.6 H Sodium Potassium Chloride Carbon Dioxide Anion Gap BUN Creatinine Est GFR ( Amer) Est GFR (Non-Af Amer) BUN/Creatinine Ratio Glucose Calcium Total Bilirubin AST ALT Alkaline Phosphatase Total Protein Albumin Globulin Albumin/Globulin Ratio I/R: 82 y o f with h/o breast ca admitted with SOB, found to have large lung mass with enlarged mediastinal and hilar lymph nodes concerning for malignancy Pt needing O2 supplementation, hemodynamically stable On Heparin drip Scheduled for bronchoscopy on Monday at 8:00 Procedure was discussed in detail Associated risks and benefits were thoroughly explained Pt and 2 daughters at bedside are agreeable for procdure and understand risks associated Further recommendations pending biopsy results D/W Tj Rosado NP
[2017-11-07] MEDS: Heparin DRIP 25,000 UNITS(*) 25,000 UNITS/500 ML BAG IV SCH (21:01)
--- NOTE | 2017-11-07 21:37 | PN ---
Progress Note - Progress Note Date of Service: 11/07/17 SOAP: Subjective: [Jeanine offers no new complaints today. She continues to deny back pain, numbness , tingling or weakness. She continues to be dyspneic with minimal exertion. No CP.] Objective: [ Heparin Sodium (Porcine) (Heparin Vial(*)) 0 units IV .BOLUS PRN PRN Reason: PER HEPARIN DRIP PROTOCOLS Last Admin: 11/06/17 23:23 Dose: 3,900 units Heparin Sodium/Dextrose (Heparin Drip 25,000 Units(*)) 25,000 units in 500 mls @ 0 mls/hr IV PER RATE WENDY; Per Protocol PRN Reason: Protocol Last Admin: 11/07/17 21:01 Dose: 23 mls/hr Potassium Chloride/Dextrose (D5w 1/2 Ns Kcl 20 Meq 1000 Ml*) 1,000 mls @ 100 mls/hr IV PER RATE WENDY Last Admin: 11/07/17 20:59 Dose: 100 mls/hr Laboratory Results - last 24 hr 11/06/17 11/07/17 11/07/17 21:13 05:37 05:37 WBC 15.2 H RBC 3.52 L Hgb 9.2 L Hct 28 L MCV 79 L MCH 26 L MCHC 33 RDW 15 Plt Count 371 MPV 7.5 Neut % (Auto) 80.1 Lymph % (Auto) 5.6 L [place] % (Auto) 12.2 H Eos % (Auto) 1.4 Baso % (Auto) 0.7 Absolute Neuts (auto) 12.2 H Absolute Lymphs (auto) 0.9 L Absolute Monos (auto) 1.9 H Absolute Eos (auto) 0.2 Absolute Basos (auto) 0.1 Absolute Nucleated RBC 0 Nucleated RBC % 0 APTT 25.6 L Sodium 133 L Potassium 4.1 Chloride 102 Carbon Dioxide 26 Anion Gap 5 BUN 7 Creatinine 0.48 L Est GFR ( Amer) 159.2 Est GFR (Non-Af Amer) 123.8 BUN/Creatinine Ratio 14.6 Glucose 123 H Calcium 9.4 Total Bilirubin 0.20 AST 11 L ALT 5 L Alkaline Phosphatase 59 Total Protein 5.7 L Albumin 2.7 L Globulin 3.0 Albumin/Globulin Ratio 0.9 L 11/07/17 11/07/17 11/07/17 05:37 12:20 19:36 WBC RBC Hgb Hct MCV MCH MCHC RDW Plt Count MPV Neut % (Auto) Lymph % (Auto) [place] % (Auto) Eos % (Auto) Baso % (Auto) Absolute Neuts (auto) Absolute Lymphs (auto) Absolute Monos (auto) Absolute Eos (auto) Absolute Basos (auto) Absolute Nucleated RBC Nucleated RBC % APTT 85.0 H 70.6 H 70.4 H Sodium Potassium Chloride Carbon Dioxide Anion Gap BUN Creatinine Est GFR ( Amer) Est GFR (Non-Af Amer) BUN/Creatinine Ratio Glucose Calcium Total Bilirubin AST ALT Alkaline Phosphatase Total Protein Albumin Globulin Albumin/Globulin Ratio Vital Signs: Temp Pulse Resp BP Pulse Ox 97.6 F 111 16 136/82 98 11/07/17 15:25 11/07/17 15:25 11/07/17 20:00 11/07/17 15:25 11/07/17 15:25 Exam: Gen: Well appearing in NAD, accompanied by family HEENT: MMM CV: RRR Resp: few crackles Abd: soft, non TTP Ext: no edema Neuro: strength and sensation grossly intact] Assessment: [82 yo female with h/o triple neg BCA who presented with bilateral PEs and large invasive lung mass.] Plan: [1. PEs - remains hypoxic but hemodynamically stable - cont heparin drip, transition to Lovenox following bronchoscopy 2. Lung mass - plan for bronchoscopy Mon with Dr Prieto - interrupt heparin drip 6 hours prior to procedure - MRI T spine completed with shows erosion into T4 and T5 and epidural invasion , but no cord compression - she remains asymptomatic - if patient develops back pain or neurologic symptoms she will require urgent initiation of steroids and radiation - complete contrasted CT study of A/P for staging purposes after sufficient washout period for MRI contrast material Dispo: Anticipate likely dc Monday after bronchoscopy with close oncology follow up]
[2017-11-08] MEDS: D5W 1/2 NS KCl 20 Meq 1000 ML* 1,000 ML IV SCH ×2 (06:35→15:36)
[2017-11-08] MEDS ORDERED: Iohexol 300* (CONTRAST) 10 ML SDV IV ONE (11:33)
--- NOTE | 2017-11-08 11:49 | PN ---
Progress Note - Progress Note Date of Service: 11/08/17 SOAP: Subjective: []Feels fine. Offers no complaints until specific questions asked. Long standing right upper back pain "but its no big deal" and some new left back pain this AM. Denies any affect on function, new tingling, or radiation of pain. Notes long standing tingling of finger tips from prior chemotherapy, bilat. and unchanged recently Last BM yesterday Medications: Heparin Sodium (Porcine) (Heparin Vial(*)) 0 units IV .BOLUS PRN PRN Reason: PER HEPARIN DRIP PROTOCOLS Last Admin: 11/06/17 23:23 Dose: 3,900 units Heparin Sodium/Dextrose (Heparin Drip 25,000 Units(*)) 25,000 units in 500 mls @ 0 mls/hr IV PER RATE WENDY; Per Protocol PRN Reason: Protocol Last Admin: 11/07/17 21:01 Dose: 23 mls/hr Potassium Chloride/Dextrose (D5w 1/2 Ns Kcl 20 Meq 1000 Ml*) 1,000 mls @ 100 mls/hr IV PER RATE WENDY Last Admin: 11/08/17 06:35 Dose: 100 mls/hr Objective: [] Vital Signs Temp Pulse Resp BP Pulse Ox 98.4 F 105 24 129/78 94 11/08/17 07:38 11/08/17 07:38 11/08/17 07:38 11/08/17 07:38 11/08/17 11:34 A&Ox3, EOMI, PERRLA Strength = bilat. with good crankshaft balancer, 5/5 HRR, S1S2 LS +rales bilat., no wheeze +BS, abd. soft and non-tender Laboratory Results - last 24 hr 11/07/17 11/07/17 12:20 19:36 APTT 70.6 H 70.4 H Assessment: []82 yo f with hx. triple negative breast cancer now with multiple PEs and large right upper lobe mass with associated T4/5 mass and adenopathy. Plan: []1. Sputum for cytology if possible (pt. states she hasn't been able to produce ) 2. CT Abd./Pelvis today with contrast 3. Plan for EBUS Monday with Dr. Prieto unless above provide information sooner 4. Pain likely cancer related, try Tylenol to start, follow as I do not see evidence today of compression 5. Cont. hep. gtt for now d/t planned procedure
[2017-11-08] MEDS ORDERED: Acetaminophen TAB* 325 MG PO PRN (12:51)
--- NOTE | 2017-11-08 14:33 | RAD ---
INDICATION: Right upper lobe mass with metastasis. COMPARISON: CT chest November 04, 2017; MRI thoracic spine November 04, 2017 TECHNIQUE: Axial source images were obtained from the hemidiaphragms to the symphysis pubis following administration of oral and intravenous contrast. 65 mL Visipaque 320 was utilized. Coronal and sagittal reconstructed images were acquired. Lung bases: There are emphysematous changes with bibasilar atelectasis and bilateral pleural effusions right greater than left. The pleural effusions are new. There is nodularity of the right lung base (please refer also to earlier CT report) Liver: The liver is normal in size. There are no masses. There is no ductal dilatation. Gallbladder: There are no calcified gallstones. There is no evidence of wall thickening or pericholecystic fluid. Spleen: The spleen is normal in size. There are no masses. Pancreas: There is no focal pancreatic mass or ductal dilatation. Adrenal glands: There is no evidence of adrenal mass. Kidneys: The kidneys are normal in size and position. There are prompt nephrograms and there is prompt excretion bilaterally. There are probable small right renal cyst. Evaluation is limited due to motion artifact. There is no evidence of nephrolithiasis. Adenopathy: There is no evidence of adenopathy by size criteria. Fluid collections: There are no free or localized fluid collections. Vessels:There are no significant atherosclerotic changes involving the aorta. There is no focal aneurysm. The iliac vessels are normal in caliber. The IVC appears normal. GI tract: There are no acute CT bowel findings. There is no obstruction. The stomach and small bowel appear normal. There is moderate stool throughout the colon with scattered diverticula. Pelvic organs: Limited evaluation due to beam hardening artifact from right hip arthroplasty Bladder: No gross abnormalities. Abdominal and pelvic soft tissues: The extraperitoneal abdominal and pelvic soft tissues appear normal.. Osseous structures: There are no acute osseous findings. Other: None IMPRESSION: 1. NO DEFINITIVE METASTATIC DISEASE OF THE ABDOMEN OR PELVIS 2. LOW SUSPICION YET INCOMPLETELY CHARACTERIZED RENAL LESIONS, LIKELY CYSTS. 3. NEW PLEURAL EFFUSIONS Pleural effusion Effusion Pleural effusions new pleural effusions new pleural effusions Pleural effusions
[2017-11-08] MEDS: Heparin DRIP 25,000 UNITS(*) 25,000 UNITS/500 ML BAG IV SCH (18:30)
[2017-11-09] MEDS: D5W 1/2 NS KCl 20 Meq 1000 ML* 1,000 ML IV SCH (03:12)
[2017-11-09 06:38] LABS: Hematocrit 26 % (35-47); Hemoglobin 8.8 g/dl (12.0-16.0); Mean Corpuscular HGB Conc 34 g/dl (31-36); Mean Corpuscular Hemoglobin 26 pg (27-31); Mean Corpuscular Volume 78 fL (80-97); Mean Platelet Volume 7.3 um3 (7.4-10.4); Platelet Count 442 10^3/ul (150-450); Red Blood Count 3.34 10^6/ul (4.0-5.4); Red Cell Distribution Width 15 % (10.5-15); White Blood Count 14.4 10^3/ul (3.5-10.8)
[2017-11-09 06:44] LABS: ABS Basophils 0.1 10^3/ul (0-0.2); ABS Eosinophils 0.3 10^3/ul (0-0.6); ABS Lymphocytes 0.7 10^3/ul (1.0-4.8); ABS Monocytes 1.6 10^3/ul (0-0.8); ABS Neutrophils 11.7 10^3/ul (1.5-7.7); ABS Nucleated RBC 0 10^3/ul; Lymphocyte % 5.2 % (25-47); Nucleated Red Blood Cells % 0
[2017-11-09 07:09] LABS: EGFR Non-African American 136.9 (>60)
--- NOTE | 2017-11-09 09:50 | PN ---
Progress Note - Progress Note Date of Service: 11/09/17 SOAP: Subjective: feels pretty good today. mild headaches on and off. had one this am, now gone. ambulating around nursing station at least 1-2x/dy. had a BM this am. pain well controlled w tylenol. Objective: Vital Signs Temp Pulse Resp BP Pulse Ox 98.2 F 102 18 112/67 94 11/09/17 03:36 11/09/17 03:36 11/09/17 07:04 11/09/17 03:36 11/09/17 03:36 perr eomi op moist CTA bl s1 s2 III/ VALDEZ at RUSB soft nt +bs trace LE edema R>L A+O x 3 nonfocal neurological exam no HARPREET Laboratory Results - last 24 hr 11/08/17 11/09/17 11/09/17 19:25 06:18 06:18 WBC 14.4 H RBC 3.34 L Hgb 8.8 L Hct 26 L MCV 78 L MCH 26 L MCHC 34 RDW 15 Plt Count 442 MPV 7.3 L Neut % (Auto) 81.4 Lymph % (Auto) 5.2 L [place] % (Auto) 11.0 H Eos % (Auto) 2.0 Baso % (Auto) 0.4 Absolute Neuts (auto) 11.7 H Absolute Lymphs (auto) 0.7 L Absolute Monos (auto) 1.6 H Absolute Eos (auto) 0.3 Absolute Basos (auto) 0.1 Absolute Nucleated RBC 0 Nucleated RBC % 0 APTT 61.1 H Sodium 131 L Potassium 4.2 Chloride 100 L Carbon Dioxide 26 Anion Gap 5 BUN 3 L Creatinine 0.44 L Est GFR ( Amer) 176.1 Est GFR (Non-Af Amer) 136.9 BUN/Creatinine Ratio 6.8 L Glucose 112 H Calcium 9.5 Total Bilirubin 0.30 AST 11 L ALT 7 Alkaline Phosphatase 56 Total Protein 5.5 L Albumin 2.6 L Globulin 2.9 Albumin/Globulin Ratio 0.9 L Acetaminophen (Tylenol Tab*) 650 mg PO Q6H PRN PRN Reason: PAIN Heparin Sodium (Porcine) (Heparin Vial(*)) 0 units IV .BOLUS PRN PRN Reason: PER HEPARIN DRIP PROTOCOLS Last Admin: 11/06/17 23:23 Dose: 3,900 units Heparin Sodium/Dextrose (Heparin Drip 25,000 Units(*)) 25,000 units in 500 mls @ 0 mls/hr IV PER RATE WENDY; Per Protocol PRN Reason: Protocol Last Admin: 11/08/17 18:30 Dose: 23 mls/hr Potassium Chloride/Dextrose (D5w 1/2 Ns Kcl 20 Meq 1000 Ml*) 1,000 mls @ 100 mls/hr IV PER RATE WENDY Last Admin: 11/09/17 03:12 Dose: 100 mls/hr CT A/P: personally reviewed, osteopenia, no clear lesions Assessment: 82 yo F w COPD presenting with an extensive DVT and PE, found to have a large lung mass with extension into T4 and extensive mediastinal adenopathy. Also relatively new microcytic anemia. Plan: Lung mass: bronch w bx tomorrow with Dr. Prieto microcytic anemia: check stool guaiac, particularly given anticoagulation check iron panel if stool guaiac positive will likely need IVC filter ?metastatic colon CA (though imaging looks like primary lung lesion) PE: heparin drip until after procedure and stool guaiac stop IVFs full code
--- NOTE | 2017-11-09 15:55 | PN ---
Progress Note - Progress Note Date of Service: 11/09/17 - Pulm f/u note Note: Pt seen and examined at bedside. Pt denies significant SOB, sitting up in chair. Denies significant cough. Active Medications Generic Name Dose Route Start Last Admin Trade Name Freq PRN Reason Stop Dose Admin Acetaminophen 650 mg 11/08/17 12:51 Tylenol Tab* PO Q6H PRN PAIN Dexamethasone Sodium Phosphate 8 mg 11/10/17 06:00 Decadron Iv* IV SLOW PU 11/10/17 06:01 ONCE ONE Famotidine 20 mg 11/10/17 06:00 Pepcid Tab* PO 11/10/17 06:01 ONCE ONE Heparin Sodium (Porcine) 0 units 11/04/17 21:10 11/06/17 23:23 Heparin Vial(*) IV 3,900 units .BOLUS PRN Administration PER HEPARIN DRIP PROTOCOLS Heparin Sodium/Dextrose 25,000 units in 500 mls @ 0 mls/hr 11/04/17 18:45 03/20 18:30 Heparin Drip 25,000 Units(*) IV 23 mls/hr PER RATE WENDY Administration Protocol Per Protocol Lactated Ringer's 1,000 mls @ 125 mls/hr 11/10/17 06:00 Lactated Ringers 1000 Ml Bag* IV PER RATE WENDY Lidocaine/Sodium Bicarbonate 0.2 ml 11/10/17 07:00 Buffered Lidocaine 0.9% Syrin* INTRADERM 11/10/17 07:01 ONCE ONE Vital Signs Temp Pulse Resp BP Pulse Ox 98.2 F 102 18 112/67 94 11/09/17 03:36 11/09/17 03:36 11/09/17 07:04 11/09/17 03:36 11/09/17 03:36 O/E: Pt in NAD, alert, awake, oriented x3 HEENT: PERRLA, No JVD, mucus membrane moist Lungs: Diminished air entry b/l, no wheeze CVS: S1, S2+, regular Abd: Soft, BS+, NT Ext: No edema Skin: No rash or bruise Laboratory Results - last 24 hr 11/08/17 11/09/17 11/09/17 19:25 06:18 06:18 WBC 14.4 H RBC 3.34 L Hgb 8.8 L Hct 26 L MCV 78 L MCH 26 L MCHC 34 RDW 15 Plt Count 442 MPV 7.3 L Neut % (Auto) 81.4 Lymph % (Auto) 5.2 L [place] % (Auto) 11.0 H Eos % (Auto) 2.0 Baso % (Auto) 0.4 Absolute Neuts (auto) 11.7 H Absolute Lymphs (auto) 0.7 L Absolute Monos (auto) 1.6 H Absolute Eos (auto) 0.3 Absolute Basos (auto) 0.1 Absolute Nucleated RBC 0 Nucleated RBC % 0 APTT 61.1 H Sodium 131 L Potassium 4.2 Chloride 100 L Carbon Dioxide 26 Anion Gap 5 BUN 3 L Creatinine 0.44 L Est GFR ( Amer) 176.1 Est GFR (Non-Af Amer) 136.9 BUN/Creatinine Ratio 6.8 L Glucose 112 H Calcium 9.5 Iron 31 L TIBC 190 L % Saturation 16 Unsat Iron Binding 159 Transferrin 136 L Ferritin 239.2 Total Bilirubin 0.30 AST 11 L ALT 7 Alkaline Phosphatase 56 Total Protein 5.5 L Albumin 2.6 L Globulin 2.9 Albumin/Globulin Ratio 0.9 L I/R: 82 y o f former smoker with COPD/emphysema with h/o breast ca admitted with SOB, found to have large lung mass with enlarged mediastinal and hilar lymph nodes concerning for malignancy Pt needing O2 supplementation at 3-4L/min, hemodynamically stable On Heparin drip Scheduled for bronchoscopy on Monday at 8:00 am NPO after midnight today Hold heparin drip 6 hrs prior to procedure, from 2am No endobronchial involvement or obstruction with tumor Procedure was discussed in detail Associated risks and benefits were thoroughly explained Pt and 2 daughters at bedside are agreeable for procedure and understand risks associated Further recommendations pending biopsy results D/W Dr Cote
[2017-11-09] MEDS: Heparin DRIP 25,000 UNITS(*) 25,000 UNITS/500 ML BAG IV SCH (18:05)
[2017-11-10 05:33] LABS: Hematocrit 27 % (35-47); Hemoglobin 8.7 g/dl (12.0-16.0); Mean Corpuscular HGB Conc 32 g/dl (31-36); Mean Corpuscular Hemoglobin 26 pg (27-31); Mean Corpuscular Volume 80 fL (80-97); Mean Platelet Volume 7.3 um3 (7.4-10.4); Platelet Count 435 10^3/ul (150-450); Red Blood Count 3.34 10^6/ul (4.0-5.4); Red Cell Distribution Width 16 % (10.5-15)
[2017-11-10 05:35] LABS: ABS Basophils 0.1 10^3/ul (0-0.2); ABS Eosinophils 0.2 10^3/ul (0-0.6); ABS Lymphocytes 0.6 10^3/ul (1.0-4.8); ABS Monocytes 1.6 10^3/ul (0-0.8); ABS Neutrophils 11.5 10^3/ul (1.5-7.7); ABS Nucleated RBC 0 10^3/ul; Eosinophil % 1.3 % (0-6); Lymphocyte % 4.6 % (25-47); Nucleated Red Blood Cells % 0
[2017-11-10 05:52] LABS: EGFR Non-African American 144.4 (>60)
[2017-11-10] MEDS ORDERED: Dexamethasone IV* 4 MG/ML 1 ML (4 MG) IV SLOW PU ONE (06:00)
[2017-11-10] MEDS ORDERED: Famotidine TAB* 20 MG PO ONE (06:00)
[2017-11-10] MEDS ORDERED: Buffered Lidocaine 0.9% SYRIN* 5 ML/SYR SYRINGE INTRADERM ONE (06:00)
[2017-11-10] MEDS ORDERED: Acetaminophen IV 1GM/100ML * 10 MG/ML VIAL IVPB ONE (08:07)
[2017-11-10] MEDS ORDERED: Naloxone* 0.4 MG/ML 1 ML VIAL IV PRN (08:07)
[2017-11-10] MEDS ORDERED: PROCHLORPERAZINE INJ 5 MG/ML 2 ML VIAL IV PRN (08:07)
[2017-11-10] MEDS ORDERED: fentaNYL* 50 MCG/ML 2 ML VIAL (100 MCG VIAL) IV PRN (08:07)
--- NOTE | 2017-11-10 08:32 | PN ---
Progress Note - Progress Note Date of Service: 11/10/17 - Pulm f/u note Note: Pt seen and examined at bedside. Pt had O2 titrated down to 3L last night, felt winded, O2 sat around 90%, sats improved to 94% when O2 was increased to 4L and pt felt better. No other acute events last night Active Medications Generic Name Dose Route Start Last Admin Trade Name Freq PRN Reason Stop Dose Admin Acetaminophen 650 mg 11/08/17 12:51 Tylenol Tab* PO Q6H PRN PAIN Fentanyl Citrate 25 mcg 11/10/17 08:07 Fentanyl* IV 11/10/17 12:00 Q5M PRN PAIN - MODERATE Lactated Ringer's 1,000 mls @ 125 mls/hr 11/10/17 06:00 Lactated Ringers 1000 Ml Bag* IV PER RATE WENDY Naloxone HCl 0 mg 11/10/17 08:07 Narcan* IV 11/10/17 12:00 Q2M PRN severe induced resp depression Prochlorperazine Edisylate 5 mg 11/10/17 08:07 Compazine Inj* IV 11/10/17 12:00 ONCE PRN NAUSEA/VOMITING Vital Signs Temp Pulse Resp BP Pulse Ox 97.6 F 118 18 137/77 90 11/10/17 04:08 11/10/17 04:08 11/10/17 07:34 11/10/17 04:08 11/10/17 04:08 O/E: Pt in NAD, alert, awake, oriented x3 HEENT: PERRLA, No JVD, mucus membrane moist Lungs: Diminished air entry b/l, no wheeze, no accessory muscle usage CVS: S1, S2+, regular Abd: Soft, BS+, NT, ND Ext: No edema, normal ROM Skin: No rash or bruise Neuro: Alert, awake, no focal defecits Laboratory Results - last 24 hr 11/09/17 11/09/17 11/10/17 06:18 19:01 05:01 WBC 14.0 H RBC 3.34 L Hgb 8.7 L Hct 27 L MCV 80 MCH 26 L MCHC 32 RDW 16 H Plt Count 435 MPV 7.3 L Neut % (Auto) 82.0 Lymph % (Auto) 4.6 L [place] % (Auto) 11.4 H Eos % (Auto) 1.3 Baso % (Auto) 0.7 Absolute Neuts (auto) 11.5 H Absolute Lymphs (auto) 0.6 L Absolute Monos (auto) 1.6 H Absolute Eos (auto) 0.2 Absolute Basos (auto) 0.1 Absolute Nucleated RBC 0 Nucleated RBC % 0 APTT 56.1 H Sodium 131 L Potassium 4.2 Chloride 100 L Carbon Dioxide 26 Anion Gap 5 BUN 3 L Creatinine 0.44 L Est GFR ( Amer) 176.1 Est GFR (Non-Af Amer) 136.9 BUN/Creatinine Ratio 6.8 L Glucose 112 H Calcium 9.5 Iron 31 L TIBC 190 L % Saturation 16 Unsat Iron Binding 159 Transferrin 136 L Ferritin 239.2 Total Bilirubin 0.30 AST 11 L ALT 7 Alkaline Phosphatase 56 Total Protein 5.5 L Albumin 2.6 L Globulin 2.9 Albumin/Globulin Ratio 0.9 L 11/10/17 05:01 WBC RBC Hgb Hct MCV MCH MCHC RDW Plt Count MPV Neut % (Auto) Lymph % (Auto) [place] % (Auto) Eos % (Auto) Baso % (Auto) Absolute Neuts (auto) Absolute Lymphs (auto) Absolute Monos (auto) Absolute Eos (auto) Absolute Basos (auto) Absolute Nucleated RBC Nucleated RBC % APTT Sodium 132 L Potassium 3.8 Chloride 98 L Carbon Dioxide 29 Anion Gap 5 BUN 4 L Creatinine 0.42 L Est GFR ( Amer) 185.8 Est GFR (Non-Af Amer) 144.4 BUN/Creatinine Ratio 9.5 Glucose 97 Calcium 9.4 Iron TIBC % Saturation Unsat Iron Binding Transferrin Ferritin Total Bilirubin 0.30 AST 11 L ALT 7 Alkaline Phosphatase 50 Total Protein 5.3 L Albumin 2.5 L Globulin 2.8 Albumin/Globulin Ratio 0.9 L I/R: 82 y o f former smoker with COPD/emphysema with h/o breast ca admitted with SOB, found to have large lung mass with enlarged mediastinal and hilar lymph nodes concerning for malignancy Pt needing O2 supplementation at 4L/min, hemodynamically stable On Heparin drip for PE, was held for procedure this am To restart heparin post procedure Scheduled for bronchoscopy today Informed consent was obtained Pt NPO for procedure Procedure was discussed in detail Pt and family understand that she is high risk Associated risks and benefits were thoroughly explained Risk of pneumothorax and mediastinitis was discussed Risk of bleeding was discussed, however anticipate that it is less given heparin being held Pt and 2 daughters at bedside are agreeable for procedure and understand risks associated which were also discussed by anesthesiologist including risk for prolonged intubation Further recommendations pending biopsy results
--- NOTE | 2017-11-10 13:07 | PN ---
Progress Note - Progress Note Date of Service: 11/10/17 SOAP: Subjective: [Patient examined in recovery room post bronchoscopy. She is awake and alert but requiring 10L via oxymask to maintain saturations ~90%. She denies CP or SOB. No back pain. She does not feel that she can manage on her own at home with oxygen and pending treatment. ] Objective: [ Acetaminophen (Tylenol Tab*) 650 mg PO Q6H PRN PRN Reason: PAIN Apixaban (Eliquis*) 5 mg PO BID WENDY Lactated Ringer's (Lactated Ringers 1000 Ml Bag*) 1,000 mls @ 125 mls/hr IV PER RATE WENDY Laboratory Results - last 24 hr 11/09/17 11/10/17 11/10/17 19:01 05:01 05:01 WBC 14.0 H RBC 3.34 L Hgb 8.7 L Hct 27 L MCV 80 MCH 26 L MCHC 32 RDW 16 H Plt Count 435 MPV 7.3 L Neut % (Auto) 82.0 Lymph % (Auto) 4.6 L [place] % (Auto) 11.4 H Eos % (Auto) 1.3 Baso % (Auto) 0.7 Absolute Neuts (auto) 11.5 H Absolute Lymphs (auto) 0.6 L Absolute Monos (auto) 1.6 H Absolute Eos (auto) 0.2 Absolute Basos (auto) 0.1 Absolute Nucleated RBC 0 Nucleated RBC % 0 APTT 56.1 H Sodium 132 L Potassium 3.8 Chloride 98 L Carbon Dioxide 29 Anion Gap 5 BUN 4 L Creatinine 0.42 L Est GFR ( Amer) 185.8 Est GFR (Non-Af Amer) 144.4 BUN/Creatinine Ratio 9.5 Glucose 97 Calcium 9.4 Total Bilirubin 0.30 AST 11 L ALT 7 Alkaline Phosphatase 50 Total Protein 5.3 L Albumin 2.5 L Globulin 2.8 Albumin/Globulin Ratio 0.9 L Vital Signs: Temp Pulse Resp BP Pulse Ox 98.8 F 103 23 105/62 93 11/10/17 10:06 11/10/17 12:30 11/10/17 12:30 11/10/17 12:30 11/10/17 12:30 Exam: Gen: fatigued appearing 82 yo female in NAD with oxymask in place. Accompanied by 2 daughters HEENT: MMM CV: RRR Resp: few crackles at lung bases, otherwise clear Abd: soft, non TTP Ext: no LE edema Skin: No rashes] Assessment: [82 yo female with h/o triple neg BCA who presents with bilateral PEs, DVT and new large invasive lung mass. Now s/p bronchoscopy with pathology pending. High oxygen demands post bronch, but appears comfortable and otherwise stable.] Plan: [1. PE/DVT - has been on heparin drip in anticipation of bronchoscopy which was completed this am - stop heparin drip and start eliquis 2. Lung mass - bronchoscopy completed this am - near occlusion of R mainstem bronchus and thoracic invasion to the epidural space but no spinal cord impingement - pathology pending - CT A/P shows no metastatic disease - MRI brain pending Dispo: Patient does not feel that she can adequately manage independently at home and her children are not local. Requested PT/OT eval to assess performance status. Would like to pursue assisted living most likely. Asked case management to start to investigate options for her.]
[2017-11-10] MEDS: Apixaban* 5 MG TAB PO SCH ×2 (14:17→22:38)
[2017-11-10] MEDS ORDERED: Gadoteridol* (CONTRAST) 279.3 MG/ML 10 ML IV ONE (14:47)
[2017-11-11] MEDS: Apixaban* 5 MG TAB PO SCH (08:51)
--- NOTE | 2017-11-11 09:03 | PN ---
Progress Note - Progress Note Date of Service: 11/11/17 SOAP: Subjective: []Tolerated biopsy. Oxygen has been low. Feels like has to heck and puff, oxygen drops with eating or talking. Not eating much but has not in some time. No fevers. Moving bowls. Not in pain. Acetaminophen (Tylenol Tab*) 650 mg PO Q6H PRN PRN Reason: PAIN Apixaban (Eliquis*) 5 mg PO BID WENDY Last Admin: 11/11/17 08:51 Dose: 5 mg Lactated Ringer's (Lactated Ringers 1000 Ml Bag*) 1,000 mls @ 125 mls/hr IV PER RATE WENDY Objective: [] Vital Signs Temp Pulse Resp BP Pulse Ox 98.6 F 107 16 127/70 84 11/11/17 04:10 11/11/17 04:10 11/11/17 04:10 11/11/17 04:10 11/11/17 00:17 Gen: no distress, some strain breathing at baseline. HEENT: MMM CV: RRR Resp:no wheezing or crackles, decreased BS. Abd: soft, non TTP Ext: no LE edema Skin: No rashes] MRI - reviewed and no clear metastatic disease. chronic vascular changes. report pending. CT A/P - no clear metastatic disease. Assessment: [82 yo female with h/o triple neg BCA who presents with bilateral PEs, DVT and new large invasive lung mass. Now s/p bronchoscopy with pathology pending. Ddx: lung cancer, esophageal cancer both more likey the recurrent breast cancer. Course complicated by underlying lung disease and at this time on high flow oxygen. Plan: [1. PE/DVT. Currently on Eliquis but will change to Lovenox 50 mg sq po bid. 2. Lung mass. Pathology pending. Treatment will be limited if at all possible by underlying lung disease. 3. Respiratory distress. Will continue Oxygen and titrate as possible. Ddx: PE, post procedure complication, COPD. - CXR - Trial prednisone 50 mg po daily 4. Code status. Discussed possibility of worsening breathing, she wants to be DNI/DNR. 5. Dispo: Patient does not feel that she can adequately manage independently at home and her children are not local. - PT/OT eval - Would like to pursue assisted time with patient and chart 35 min
[2017-11-11] MEDS ORDERED: Furosemide IV* 10 MG/ML 2 ML VIAL (20 MG) IV ONE (10:17)
--- NOTE | 2017-11-11 10:29 | RAD ---
Indication: Hypoxia. 2 views of the chest including dual energy PA views demonstrates right upper lobe airspace disease. Right pleural effusion is noted. Left lung field is clear. Right paratracheal mass is noted. When compared to previous exam of November 04, 2017 right upper lobe pneumonia has progressed. Right suprahilar mass is noted. IMPRESSION: Right peritracheal and right suprahilar mass. Right upper lobe infiltrate now present.
--- NOTE | 2017-11-11 10:58 | PN ---
Progress Note - Progress Note Date of Service: 11/11/17 - Pulm f/u note Note: Pt seen and examined at bedside. Pt sitting up in chair. Denies SOB, cough. Reports feeling exhausted. No appetite, has not finished her breakfast Continues to be hypoxic, requiring 10L O2. Has minimal reserve, desats quickly and needs long time to recover Active Medications Generic Name Dose Route Start Last Admin Trade Name Freq PRN Reason Stop Dose Admin Acetaminophen 650 mg 11/08/17 12:51 Tylenol Tab* PO Q6H PRN PAIN Enoxaparin Sodium 50 mg 11/11/17 21:00 Lovenox(*) SUBCUT Q12H WENDY Ipratropium [place] 0.5 mg 11/11/17 13:00 Atrovent 0.5 Mg Neb.[place]ever[place]* INH [id number] AWAKE WENDY Prednisone 50 mg 11/11/17 10:00 Deltasone Tab* PO DAILY WENDY Vital Signs Temp Pulse Resp BP Pulse Ox 98.6 F 107 16 127/70 84 11/11/17 04:10 11/11/17 04:10 11/11/17 04:10 11/11/17 04:10 11/11/17 00:17 O/E: Pt in NAD, alert, awake, oriented x3, sitting up in chair HEENT: PERRLA, No JVD, mucus membrane moist Lungs: Diminished air entry b/l, decreased air entry at rt base, no wheeze, no accessory muscle usage CVS: S1, S2+, regular, tachycardic Abd: Soft, BS+, NT, ND Ext: No edema, normal ROM Skin: No rash or bruise Neuro: Alert, awake, no focal deficits Laboratory Results - last 24 hr 11/10/17 19:08 APTT 28.5 I/R: 82 y o f former smoker with COPD/emphysema with h/o breast ca admitted with SOB, found to have large lung mass with enlarged mediastinal and hilar lymph nodes concerning for malignancy Pt s/p bronchoscopy/EBUS yesterday under [place], tolerated procedure well. VIVIAN from EBUS was positive for malignant cells Pt with worsening hypoxia, requiring 10L O2 CXR was reviewed- small rt pl effusion, new from before, possible infiltrate on rt side Has narrowing of RUL bronchus and intermediate bronchus from extrinsic compression, also noted to have mucosal irregularity Had thick white secretions which were suctioned Pt has friable mucosal lesion that was bleeding with suctioning Worsening hypoxia sec to fluid overload with resultant rt pl effusion, secretions/blood clot post procedure that pt not able to cough out Will order incentive spirometry Will order Lasix 10mg Ordered Ipratropium nebs On Lovenox for PE/DVT Was started on prednisone 50mg by Dr Mora, no wheezing on auscultation, anticipate quick titration over the next 4-5 days Pt would want to be DNR/DNI Awaiting arrangements for home health aid when stable
[2017-11-11] MEDS: predniSONE TAB* 50 MG PO SCH (11:27)
[2017-11-11] MEDS: Ipratropium 0.5MG/2.5ML NEB* 0.5 MG/2.5 ML NEB.SOLN INH SCH ×2 (13:35→19:18)
[2017-11-11] MEDS ORDERED: Metoprolol Tartrate IV* 1 MG/ML 5 ML VIAL IV ONE (18:15)
[2017-11-11] MEDS: Metoprolol Tartrate TAB* 25 MG PO SCH (19:35)
[2017-11-11] MEDS: Enoxaparin(*) 60 MG/0.6 ML SYR SUBCUT SCH (20:37)
[2017-11-12] MEDS: Ipratropium 0.5MG/2.5ML NEB* 0.5 MG/2.5 ML NEB.SOLN INH SCH ×4 (01:38→19:32)
[2017-11-12] MEDS: Metoprolol Tartrate TAB* 25 MG PO SCH ×3 (05:02→19:28)
[2017-11-12 05:34] LABS: ABS Basophils 0 10^3/ul (0-0.2); ABS Eosinophils 0 10^3/ul (0-0.6); ABS Lymphocytes 0.6 10^3/ul (1.0-4.8); ABS Monocytes 0.7 10^3/ul (0-0.8); ABS Neutrophils 9.3 10^3/ul (1.5-7.7); ABS Nucleated RBC 0 10^3/ul; Eosinophil % 0 % (0-6); Hematocrit 29 % (35-47); Hemoglobin 9.7 g/dl (12.0-16.0); Lymphocyte % 5.4 % (25-47); Mean Corpuscular HGB Conc 33 g/dl (31-36); Mean Corpuscular Hemoglobin 26 pg (27-31); Mean Corpuscular Volume 80 fL (80-97); Nucleated Red Blood Cells % 0; Platelet Count 507 10^3/ul (150-450); Red Blood Count 3.69 10^6/ul (4.0-5.4); Red Cell Distribution Width 16 % (10.5-15); White Blood Count 10.5 10^3/ul (3.5-10.8)
[2017-11-12 05:58] LABS: EGFR Non-African American 92.2 (>60)
[2017-11-12] MEDS: Enoxaparin(*) 60 MG/0.6 ML SYR SUBCUT SCH ×2 (08:55→19:28)
[2017-11-12] MEDS: predniSONE TAB* 50 MG PO SCH (08:56)
[2017-11-12] MEDS ORDERED: NS 0.9% 1000 ML* 1,000 ML IV SCH (11:45)
--- NOTE | 2017-11-12 17:47 | PN ---
Subjective Date of Service: 11/12/17 Interval History: She has no complaints. She feels well today. O2 was decreased from 10L to 5L. Denies shortness of breath, cough, dyspnea. No overnight events. Her son is here visiting with her, he agrees she is improving. Family History: Findings - Both of her daughters had breast cancer. Social History: Findings - Quit smoking 15+ yrs ago. No alcohol use. SDM is daughter Amairani Winters [phone] ([place]) Past Medical History: Findings - R mastectomy for breast cancer 2002 [place], [place], triple-negative, had chemo and a port. BL cataract sx, appy 1950, 5 children, fx L clavicle, R hip ORIF for fx 05/2017. Objective Active Medications: Acetaminophen (Tylenol Tab*) 650 mg PO Q6H PRN PRN Reason: PAIN Enoxaparin Sodium (Lovenox(*)) 50 mg SUBCUT Q12H [facility] Last Admin: 11/12/17 08:55 Dose: 50 mg Sodium Chloride (Ns 0.9% 1000 Ml*) 1,000 mls @ 100 mls/hr IV .PER RATE [facility] Last Admin: 11/12/17 12:44 Dose: 100 mls/hr Ipratropium [place] (Atrovent 0.5 Mg Neb.Beverly*) 0.5 mg INH [id number] AWAKE [facility] Last Admin: 11/12/17 12:43 Dose: 0.5 mg Metoprolol Tartrate (Lopressor Tab*) 25 mg PO Q8H [facility] Last Admin: 11/12/17 11:39 Dose: 25 mg Prednisone (Deltasone Tab*) 50 mg PO DAILY [facility] Last Admin: 11/12/17 08:56 Dose: 50 mg Vital Signs - 8 hr 11/12/17 11/12/17 11/12/17 11:17 11:24 12:43 Temperature 98.8 F Pulse Rate 95 93 88 Respiratory 24 16 Rate Blood Pressure 96/51 93/53 (mmHg) O2 Sat by Pulse 90 88 Oximetry 11/12/17 11/12/17 15:16 16:00 Temperature 97.5 F Pulse Rate 88 Respiratory 16 Rate Blood Pressure 107/66 (mmHg) O2 Sat by Pulse 92 92 Oximetry Oxygen Devices in Use Now: Nasal Cannula Appearance: alert, thin, well appearing. speaking in full sentences. no accessory respiratory muscles in use. Eyes: No Scleral Icterus Ears/Nose/Mouth/Throat: NL Teeth, Lips, Gums, Clear Oropharnyx Neck: NL Appearance and Movements; NL JVP, Trachea Midline Respiratory: Symmetrical Chest Expansion and Respiratory Effort, Clear to Auscultation Cardiovascular: NL Sounds; No Murmurs; No JVD, RRR, No Edema Abdominal: NL Sounds; No Tenderness; No Distention Lymphatic: No Cervical Adenopathy Extremities: No Edema Skin: No Rash or Ulcers Neurological: Alert and Oriented x 3 Result Diagrams: 11/12/17 05:16 11/12/17 05:16 Microbiology and Other Data: Microbiology 11/04/17 16:51 Influenza Types A,B Antigen (ODETTE) - Final Nasal Specimen received for Influenza A/B Molecular testing Assess/Plan/Problems-Billing Assessment: - Patient Problems (1) Acute respiratory failure with hypoxia Current Visit: Yes Status: Acute Code(s): J96.01 - ACUTE RESPIRATORY FAILURE WITH HYPOXIA SNOMED Code(s): 78506506 Comment: Improving, O2 titrated down to 5L / min Multifactorial and related to acute PE + new lung mass with right mainstem involvement Also started on prednisone yesterday for concern for bronchospasm (2) Lung mass Current Visit: Yes Status: Acute Code(s): R91.8 - OTHER NONSPECIFIC ABNORMAL FINDING OF LUNG FIELD SNOMED Code(s): 464224913 Comment: Cytology from EBUS is pending Onc/Pulm following with plan for treatment initiation with pathology returns (3) Pulmonary embolism Current Visit: Yes Status: Acute Code(s): I26.99 - OTHER PULMONARY EMBOLISM WITHOUT ACUTE COR PULMONALE SNOMED Code(s): 04815136 Comment: Malignancy-related; continue therapeutic lovenox (4) Moderate aortic stenosis Current Visit: No Status: Acute Code(s): I35.0 - NONRHEUMATIC AORTIC (VALVE ) STENOSIS SNOMED Code(s): 11086594 Comment: noted.
[2017-11-13] MEDS: Ipratropium 0.5MG/2.5ML NEB* 0.5 MG/2.5 ML NEB.SOLN INH SCH ×2 (00:40→07:40)
[2017-11-13] MEDS: Metoprolol Tartrate TAB* 25 MG PO SCH ×3 (03:34→21:22)
[2017-11-13] MEDS ORDERED: Furosemide IV* 10 MG/ML 2 ML VIAL (20 MG) ONE (04:04)
[2017-11-13] MEDS: predniSONE TAB* 50 MG PO SCH (08:40)
[2017-11-13] MEDS: Enoxaparin(*) 60 MG/0.6 ML SYR SUBCUT SCH ×2 (08:40→21:24)
--- NOTE | 2017-11-13 09:59 | RAD ---
Indication: Headaches, lung cancer. Image Sequences: Sagittal and axial T1, axial T2, FLAIR, diffusion and susceptibility weighted images of the brain were obtained. Nine mL of ProHance was injected and postcontrast axial, coronal and sagittal T1-weighted images were repeated. Ventricular structures are midline. No midline shift is noted. The extra-axial spaces are unremarkable. There is central and cortical atrophy noted. There is no evidence of any enhancing lesions. There is periventricular and subcortical white matter abnormalities consistent with chronic ischemic white matter change. Mastoid air cells and paranasal sinuses are grossly unremarkable. The orbits are unremarkable. No restriction of diffusion is noted on the diffusion-weighted images. Susceptibility weighted images demonstrate no susceptibility artifact. IMPRESSION: Chronic ischemic white matter change is noted. There is no intracranial mass or hemorrhage. No enhancing lesions are identified.
[2017-11-13] MEDS ORDERED: LORazepam TAB(*) 0.5 MG PO PRN (11:04)
[2017-11-13] MEDS ORDERED: Albuterol 2.5 MG/3 ML NEB.SOL* (0.083%) INH PRN (11:06)
--- NOTE | 2017-11-13 11:12 | PN ---
Progress Note - Progress Note Date of Service: 11/13/17 SOAP: Subjective: []Admitted with large burden PE and resp. distress, found to have large lung mass with extension into T4-5. Feeling well. Did not enjoy tube down throat for EBUS and does not want aggressive measures. Wants to focus on comfort "for whatever time I have left." Path still pending, though pt. states she does not want chemotherapy. Medications: Acetaminophen (Tylenol Tab*) 650 mg PO Q6H PRN PRN Reason: PAIN Albuterol (Ventolin 2.5 Mg/3 Ml Neb.Beverly*) 2.5 mg INH Q4H PRN PRN Reason: SOB/WHEEZING Device (Tiotropium Inhaler Device*) 1 each .SEE ORDER .USE w/ SPIRIVA CAPS [facility] Enoxaparin Sodium (Lovenox(*)) 50 mg SUBCUT Q12H [facility] Last Admin: 11/13/17 08:40 Dose: 50 mg Lorazepam (Ativan Tab(*)) 0.25 mg PO Q4H PRN PRN Reason: Anxiety/insomnia Metoprolol Tartrate (Lopressor Tab*) 25 mg PO Q8H [facility] Last Admin: 11/13/17 03:34 Dose: 25 mg Morphine Sulfate (Morphine Oral Concentrate*) 5 mg PO Q2H PRN PRN Reason: dyspnea/pain Prednisone (Deltasone Tab*) 50 mg PO DAILY [facility] Last Admin: 11/13/17 08:40 Dose: 50 mg Tiotropium [place] (Spiriva Cap.Inh*) 1 cap INH DAILY [facility] Objective: [] Vital Signs Temp Pulse Resp BP Pulse Ox 98.4 F 82 22 123/72 93 11/13/17 07:34 11/13/17 07:41 11/13/17 08:00 11/13/17 07:34 11/13/17 08:00 A&Ox3, EOMI, PERRLA, LALA, communicating clear HRR, S1S2, SR on tele LS dim. with mild resp. effort Assessment: []82 yo female with presumed malignancy in setting of new lung mass, adenopathy , and PEs. Long discussion today with pt. and son regarding potential tx. options dependent on final diagnosis, however she is clear she does not want treatment and would like to pursue comfort measures. With notable decline in performance status since presentation pursuing hospice is a very reasonable decision. Plan: []1. Start morphine and ativan PRN anxiety/dyspnea/insomnia/pain 2. D/C tomorrow AM to [facility] with outpatient hospice consult once there DNR/DNI
[2017-11-13] MEDS: Morphine ORAL CONCENTRATE* 5 MG/0.25 ML ORAL.SYRIN PO PRN ×3 (11:53→21:23)
[2017-11-13] MEDS ORDERED: Spiriva Inhaler DEVICE* 1 EACH DEVICE SCH (12:00)
[2017-11-14] MEDS: Metoprolol Tartrate TAB* 25 MG PO SCH (04:53)
[2017-11-14] MEDS: Morphine ORAL CONCENTRATE* 5 MG/0.25 ML ORAL.SYRIN PO PRN ×2 (06:09→09:02)
[2017-11-14] MEDS: Enoxaparin(*) 60 MG/0.6 ML SYR SUBCUT SCH (08:51)
[2017-11-14] MEDS: predniSONE TAB* 50 MG PO SCH (08:52)
[2017-11-14] MEDS ORDERED: Tiotropium CAP.INH* CAP.INH/18 MCG (USE ORDER SET !) INH SCH (09:00)
[2017-11-14 09:26] VITALS: BP 130/78
--- NOTE | 2017-11-14 09:50 | DS ---
- Discharge Summary Admission Date: 11/04/2017 Discharge Date: 11/14/2017 Discharge Diagnosis: 1. Metastatic Squamous Cell Lung Cancer: transition to hospice 2. Pulmonary Emboli with acute resp. distress: on anti-coagulation 3. DVT: anti-coagulation per PE 4. Pneumonia: present on admission, staph a. from sputum, d/c on abx. Discharge Medications: Medication Instructions Recorded Confirmed Type Acetaminophen TAB* [Tylenol TAB*] 650 mg PO Q6H PRN tab 11/14/17 Rx Albuterol 2.5MG/3ML (0.083%)* 2.5 mg INH Q4H PRN neb.soln 11/14/17 Rx [Ventolin 2.5 MG/3 ML NEB.JEAN-CLAUDE*] DOXYcycline CAP(*) [DOXYcycline 100 mg PO BID #20 cap 11/14/17 Rx 100MG CAP(*)] Enoxaparin(*) [Lovenox(*)] 50 mg SUBCUT Q12H syringe 11/14/17 Rx LORazepam TAB(*) [Ativan 0.5 MG 0.25 - 0.5 mg PO Q4H PRN tab MDD 11/14/17 Rx TAB (*)] 6 doses Metoprolol Tartrate TAB* 25 mg PO Q8H tab 11/14/17 Rx [Lopressor TAB*] Morphine ORAL CONCENTRATE* 5 mg PO Q2H PRN oral.syrin MDD 12 11/14/17 Rx doses Spiriva Inhaler DEVICE* 1 each .SEE ORDER .USE w/ SPIRIVA 11/14/17 Rx [Tiotropium Inhaler DEVICE*] CAPS device Tiotropium CAP.INH* [Spiriva 1 cap INH DAILY cap.inh 11/14/17 Rx CAP.INH*] predniSONE TAB* [Deltasone TAB*] 40 mg PO DAILY #60 tab 11/14/17 Rx Hospital Course: Please see admission note for full H&P, however briefly, Ms. Fox presented to the ER on 11/04/17 with chief complaint of right leg pain, SOB, and back pain with laying flat. Concurrently she also noted a 25 lb. wt. loss over the prior 5 mo. since a hip surgery in 2016. A doppler in the ER revealed a large DVT of the right femoral and popliteal veins and an initial CXR revealed right upper lobe infiltrate. She received a dose of Azithromycin and Ceftriaxone in the ER. A subsequent CTA revealed multiple PEs, a large right upper lobe mass, multiple small pulmonary nodules, extensive mediastinal and hilar adenopathy, and extension of the lung mass to T4-5 with epidural extension. She was admitted under the hospitalist service on a heparin gtt. Dr. Hurt (oncology) was consulted on 11/05 d/t high suspicion for metastatic lung cancer. Recommendation was made for sputum cytology and if unable to obtain or negative subsequent EBUS, MRI of the spine to further eval. for compression, and a CT of the abd. and pelvis for further evaluation of metastatic disease. Dr. Prieto ( pulmonology) was consulted on 11/06 and agreed to EBUS. MRI done 11/06 confirmed mass @ T3-[address] of the abd. and pelvis completed 11/08 ( delayed d/t prior MRI contrast) did not reveal further metastatic disease. EBUS was completed on 11/10 without obvious complications, however the pt. did experience some post procedural discomfort and recurrent hypoxia over the next several days. A chest x-ray on 11/11 was read as progressive pneumonia and sputum obtained that day revealed on day of discharge staph aureus. Biopsy confirmed Squamous Cell Carcinoma of the lung and treatment options were discussed with the patient, however she adamantly deferred chemotherapy stating that she wanted to enjoy whatever time she had left. She requested DNR/DNI and has asked for transition to a SNF for hospice care. Due to positive sputum she will be discharged with oral doxycycline for presumed post-obstuctive CAP. She will be d/c'd with cont'd lovenox and comfort medications. Plan of care was reviewed with the patient and family at length and all questions were answered. >40 min. with >50% face to face counseling
== END 2017-11-14 11:55 | disposition hospice, home (50) | DRG 180 ==
LOC: ED 13:41 → MEDTELE 18:36
PROVIDERS: ADMIT Internal Medicine; ATTEND Internal Medicine Hematology & Oncology
PROC: BB4BZZZ Ultrasonography of Pleura (ICD-10-PCS; 2017-11-10)
PROC: 0BB48ZX Excision of Right Upper Lobe Bronchus, Via Natural or Artificial Opening Endoscopic, Diagnostic (ICD-10-PCS; principal; 2017-11-10 08:30)
DX: C34.90 Malignant neoplasm of unspecified part of unspecified bronchus or lung (principal); I26.99 Other pulmonary embolism without acute cor pulmonale; J15.211 Pneumonia due to Methicillin susceptible Staphylococcus aureus; E43 Unspecified severe protein-calorie malnutrition; J96.01 Acute respiratory failure with hypoxia; I82.411 Acute embolism and thrombosis of right femoral vein; I82.431 Acute embolism and thrombosis of right popliteal vein; I82.441 Acute embolism and thrombosis of right tibial vein; Z68.1 Body mass index [BMI] 19.9 or less, adult; C79.51 Secondary malignant neoplasm of bone; J44.0 Chronic obstructive pulmonary disease with (acute) lower respiratory infection; Z96.641 Presence of right artificial hip joint; M41.9 Scoliosis, unspecified; I27.20 Pulmonary hypertension, unspecified; G98.8 Other disorders of nervous system; D50.9 Iron deficiency anemia, unspecified; I35.0 Nonrheumatic aortic (valve) stenosis; Z90.11 Acquired absence of right breast and nipple; Z88.8 Allergy status to other drugs, medicaments and biological substances; Z85.3 Personal history of malignant neoplasm of breast; Z82.49 Family history of ischemic heart disease and other diseases of the circulatory system; Z87.891 Personal history of nicotine dependence; Z80.3 Family history of malignant neoplasm of breast; Z92.21 Personal history of antineoplastic chemotherapy; Z79.01 Long term (current) use of anticoagulants; Z79.52 Long term (current) use of systemic steroids; Z66 Do not resuscitate; Z98.42 Cataract extraction status, left eye; Z98.41 Cataract extraction status, right eye; I45.10 Unspecified right bundle-branch block
CPT/HCPCS: 36415; 70553; 71046; 71275; 72157; 74177; 80048; 80053; 81003; 82550; 82553; 82565; 82728; 82803; 83540; 83550; 83605; 83880; 84484; 84520; 85025; 85379; 85610; 85652; 85730; 86140; 87040; 87070; 87077; 87186; 87205; 87502; 88172; 88173; 88305; 88341; 88342; 88360; 93005; 94640; 99223; 99232; 99233; 99239; 99284; A9270-GY; A9579; G8978-GP-CJ; G8979-GP-CH; G8987-GO-CK; G8988-GO-CI; J0456; J0696; J1644; J1650; J1940; J3490; J7512; Q9967